=== PATIENT | female | born 1960 | race Caucasian/White ===

== ENCOUNTER → 2016-07-21 | Outpatient (CLI) | payer MEDICAID | LOC: EDBD 14:59 → RAD 14:59 | PROVIDERS: ATTEND Family Medicine | DX: M54.2 Cervicalgia (principal); M54.9 Dorsalgia, unspecified; M50.322 Other cervical disc degeneration at C5-C6 level; M51.36 Other intervertebral disc degeneration, lumbar region | CPT/HCPCS: 72050; 72110 ==

== ENCOUNTER → 2017-05-21 | Outpatient (CLI) | payer MEDICAID ==
--- NOTE | 2017-05-21 11:03 | RADIOLOGY REPORT (SQ) ---
EXAM DESCRIPTION: KNEE LEFT 4 VIEW COMPLETED DATE/TIME: 05/21/2017 10:47 am REASON FOR STUDY: BILATERAL KNEE PAIN (M25.561, M25.562) M25.561 PAIN IN RIGHT KNEE M25.562 PAIN I N LEFT KNEE COMPARISON: None. NUMBER OF VIEWS: Four views. TECHNIQUE: AP, lateral, and both oblique radiographic images acquired of the left knee. LIMITATIONS: None. FINDINGS: MINERALIZATION: Normal. BONES: No acute fracture or dislocation. No worrisome bone lesions. Small medial osteophyte. JOINT: No effusion. No chondrocalcinosis. OTHER: No other significant finding. IMPRESSION: Mild medial compartment degenerative changes. TECHNICAL DOCUMENTATION: JOB ID: [id number] [employer]- All Rights Reserved
--- NOTE | 2017-05-21 11:04 | RADIOLOGY REPORT (SQ) ---
EXAM DESCRIPTION: KNEE RIGHT 4 VIEWS COMPLETED DATE/TIME: 05/21/2017 10:47 am REASON FOR STUDY: BILATERAL KNEE PAIN (M25.561, M25.562) M25.561 PAIN IN RIGHT KNEE M25.562 PAIN I N LEFT KNEE COMPARISON: None. NUMBER OF VIEWS: Four views. TECHNIQUE: AP, lateral, and both oblique radiographic images acquired of the right knee. LIMITATIONS: None. FINDINGS: MINERALIZATION: Normal. BONES: No acute fracture or dislocation. No worrisome bone lesions. Small 3 compartment osteophytes. JOINT: No effusion. No chondrocalcinosis. OTHER: No other significant finding. IMPRESSION: Mild 3 compartment osteoarthritis. TECHNICAL DOCUMENTATION: JOB ID: [id number] [employer]- All Rights Reserved
== END ==
LOC: RAD 10:16
PROVIDERS: ATTEND Family Medicine
DX: M25.561 Pain in right knee (principal); M25.562 Pain in left knee

== ENCOUNTER → 2017-10-15 | Outpatient (CLI) | payer MEDICAID ==
[2017-10-15 13:14] LABS: ABSOLUTE EOSINOPHILS # (AUTO) 0.1 10^3/uL (0.0-0.6); ABSOLUTE LYMPHOCYTES (AUTO) 2.3 10^3/uL (0.5-4.7); ABSOLUTE MONOCYTES (AUTO) 0.4 10^3/uL (0.1-1.4); ABSOLUTE NEUT (AUTO) 3.8 10^3/uL (1.7-8.2); BASOPHILS % (AUTO) 0.4 % (0-2); EOSINOPHILS % (AUTO) 1.2 % (0-6); HEMATOCRIT 42.1 % (36.0-47.0); HEMOGLOBIN 14.8 g/dL (12.0-15.5); LYMPHOCYTES % (AUTO) 34.8 % (13-45); MEAN CORPUSCULAR HEMOGLOBIN 32.1 pg (27.0-33.4); MEAN CORPUSCULAR HGB CONC 35.1 g/dL (32.0-36.0); MEAN CORPUSCULAR VOLUME 91 fl (80-97); MONOCYTES % (AUTO) 5.7 % (3-13); PLATELET COUNT 207 10^3/uL (150-450); RED BLOOD COUNT 4.61 10^6/uL (3.72-5.28); RED CELL DISTRIBUTION WIDTH 13.5 % (11.5-14.0); SEGMENTED NEUTROPHILS % (AUTO) 57.9 % (42-78); TOTAL CELLS COUNTED % (AUTO) 100 %; WHITE BLOOD COUNT 6.6 10^3/uL (4.0-10.5)
[2017-10-15 13:31] LABS: APPEARANCE,URINE SLIGHTLY-CLOUDY; BILIRUBIN,URINE NEGATIVE (NEGATIVE); COLOR,URINE YELLOW; GLUCOSE, URINE NEGATIVE (NEGATIVE); KETONES,URINE NEGATIVE (NEGATIVE); LEUKOCYTE ESTERASE,URINE LARGE (NEGATIVE); NITRITE,URINE NEGATIVE (NEGATIVE); PROTEIN,URINE NEGATIVE (NEGATIVE); URINE SPECIFIC GRAVITY 1.023; UROBILINOGEN,URINE NEGATIVE mg/dL (<2.0)
[2017-10-15 13:48] LABS: ANION GAP 12 (5-19); BLOOD UREA NITROGEN 13 mg/dL (7-20); CALCIUM 10.1 mg/dL (8.4-10.2); CARBON DIOXIDE 26 mmol/L (22-30); CHLORIDE 107 mmol/L (98-107); GLUCOSE 113 mg/dL (75-110); POTASSIUM 4.4 mmol/L (3.6-5.0); SODIUM 145.4 mmol/L (137-145)
--- NOTE | 2017-10-15 15:52 | RADIOLOGY REPORT (SQ) ---
EXAM DESCRIPTION: CHEST PA/LATERAL COMPLETED DATE/TIME: 10/15/2017 1:02 pm REASON FOR STUDY: PRE-OP COMPARISON: None. EXAM PARAMETERS: NUMBER OF VIEWS: two views TECHNIQUE: Digital Frontal and Lateral radiographic views of the chest acquired. RADIATION DOSE: NA LIMITATIONS: none FINDINGS: LUNGS AND PLEURA: No opacities, masses or pneumothorax. No pleural effusion. MEDIASTINUM AND HILAR STRUCTURES: No masses or contour abnormalities. HEART AND VASCULAR STRUCTURES: Heart normal size. No evidence for failure. BONES: No acute findings. HARDWARE: None in the chest. OTHER: No other significant finding. IMPRESSION: NO SIGNIFICANT RADIOGRAPHIC FINDING IN THE CHEST. TECHNICAL DOCUMENTATION: JOB ID: [id number] [employer]- All Rights Reserved Reading location - IP/workstation name: [email or web address]
--- NOTE | 2017-10-15 20:24 | EKG REPORT ---
SEVERITY:- BORDERLINE ECG - SINUS RHYTHM BORDERLINE T ABNORMALITIES, INFERIOR LEADS : Confirmed by: Joselyn Leon MD 15-Oct-2017 20:23:57
== END ==
LOC: OD 12:26
PROVIDERS: ATTEND Orthopaedic Surgery
DX: Z01.810 Encounter for preprocedural cardiovascular examination (principal); Z01.812 Encounter for preprocedural laboratory examination; Z01.818 Encounter for other preprocedural examination
CPT/HCPCS: 36415; 71046; 80048; 81001; 85025; 93005; 93010

== ENCOUNTER 2017-11-12 11:38 | Inpatient (IN) | payer MEDICAID ==
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
[~2017-11-12 11:38] MED LIST: BUPIVACAINE INJ/PF LIPOSOME/PF 266 MG/20 ML SDV ONE; CEFAZOLIN INJ 1 GM VIAL IV PRN; CLINDAMYCIN 600 MG/D5W RTU 600 MG/50 ML RTUPB IV PRN; IBUPROFEN 800 MG/NS 250 ML IV PRN; LACTATED RINGERS 1000 ML IV PRN; LANSOPRAZOLE 15 MG TAB.RAP.DR PO PRN; LIDOCAINE 0.5% INJ-PF (5 MG/ML) 50 ML SDV SUBCUT PRN; OXYCODONE HCL SR 10 MG TABLET PO PRN; VANCOMYCIN HCL 1,000 MG in DEXTROSE 5%-WATER 250 ML IV PRN
[2017-11-12] MEDS ORDERED: FENTANYL CITRATE INJ/PF 250 MCG/5 ML AMPULE ONE (12:48)
[2017-11-12] MEDS ORDERED: LIDOCAINE 2% INJ-PF (20 MG/ML) 10 ML AMPUL ONE (12:48)
[2017-11-12] MEDS ORDERED: PROPOFOL INJ 200 MG/20 ML VIAL IV ONE ×2 (12:49→15:38)
[2017-11-12] MEDS ORDERED: ACETAMINOPHEN 1,000 MG/100 ML RTUPB IV ONE (12:49)
[2017-11-12] MEDS ORDERED: MIDAZOLAM 2 MG/2 ML INJ ONE (12:49)
[2017-11-12] MEDS ORDERED: ONDANSETRON HCL INJ/PF 4 MG/2 ML SDV ONE (12:49)
[2017-11-12] MEDS ORDERED: FENTANYL CITRATE INJ/PF 100 MCG/2 ML AMPUL ONE (12:51)
[2017-11-12] MEDS ORDERED: BUPIVACAINE HCL/DEX-WATER/PF 15 MG/2 ML AMPULE ONE (12:54)
[2017-11-12] MEDS: BUPIVACAINE INJ/PF LIPOSOME/PF 266 MG/20 ML SDV IJ PRN ×2 (13:15→14:42)
[2017-11-12] MEDS: THROMBIN (BOVINE) TOPICAL 5000 UNIT VIAL ONE ×2 (13:17→14:42)
[2017-11-12] MEDS: THROMBIN (BOVINE) TOPICAL 20000 UNIT VIAL ONE ×2 (13:17→14:42)
[2017-11-12] MEDS ORDERED: THROMBIN (BOVINE) TOPICAL 20000 UNIT VIAL ONE (14:52)
[2017-11-12] MEDS ORDERED: RINGERS SOLUTION,LACTATED 1,000 ML IV PRN (15:03)
[2017-11-12] MEDS ORDERED: DIPHENHYDRAMINE HCL 50 MG/ML VIAL IV PRN ×2 (15:03→15:34)
[2017-11-12] MEDS ORDERED: ACETAMINOPHEN 325 MG TABLET PO PRN (15:03)
[2017-11-12] MEDS ORDERED: MORPHINE SULFATE 10 MG/ML INJ IM PRN (15:03)
[2017-11-12] MEDS ORDERED: ONDANSETRON 4 MG TAB.RAPDIS PO PRN (15:03)
[2017-11-12] MEDS ORDERED: MAG HYDROX/AL HYDROX/SIMETH SUSP 30 ML UDCUP PO PRN (15:03)
[2017-11-12] MEDS ORDERED: ZOLPIDEM TARTRATE 5 MG TABLET PO PRN (15:03)
[2017-11-12] MEDS ORDERED: MORPHINE SULFATE 10 MG/ML INJ IV PRN ×4 (15:03→15:34)
[2017-11-12] MEDS ORDERED: ONDANSETRON HCL INJ/PF 4 MG/2 ML SDV IV PRN ×2 (15:03→15:34)
--- NOTE | 2017-11-12 15:03 | Operative Report ---
Operative Report DATE OF SURGERY: 11/12/17 PREOPERATIVE DIAGNOSIS: Right knee arthritis OPERATION: Right knee arthroplasty SURGEON: MARQUEZ IBANEZ ANESTHESIA: Spinal TISSUE REMOVED OR ALTERED: Bone to pathology ESTIMATED BLOOD LOSS: 100 PROCEDURE: Implants used: Femur: Chang triathlon size 4 CR femur Tibia: 3 tibia Tibial liner: 9 mm CS insert Patella: 32 mm oval patella Procedure with the patient supine on the operating table the right the limb is prepped and draped in a sterile fashion. The limb was elevated for exsanguination and the tourniquet inflated to 280 torr. A standard midline median parapatellar approach the knee is taken. Access is gained to the femoral canal through the intercondylar notch. Intramedullary alignment instrumentation used to resect 10 mm of distal femur in 5 of valgus. Sizing guide indicated a size 4 femur. Appropriate cutting jig is then used to fashion anterior posterior and chamfer cuts. A trial reduction femurs performed and this is judged to be adequate. Attention was next turned to the tibia. Using an extra medullary alignment system 9 millimeters was resected off the lateral tibial plateau. This is sized to a size 3 tibia. A trial reduction was now performed with a for femur and a 3 tibia using a 9 millimeters spacer. It is full extension and central patellofemoral tracking. The articular surface the patella was next resected using an oscillating saw. All trial implants were removed. Polymethylmethacrylate is mixed and used to cement the above implants in place. On adequate curing the cement excess cement was removed the tourniquet was deflated hemostasis obtained the wound is then closed in layers using interrupted Vicryl followed by dulce. A sterile compressive dressing was applied and the patient returned to recovery room in satisfactory condition.
[2017-11-12] MEDS ORDERED: PROMETHAZINE HCL INJ 25 MG/1 ML VIAL IV PRN ×2 (15:34)
[2017-11-12] MEDS ORDERED: FENTANYL CITRATE INJ/PF 100 MCG/2 ML AMPUL IV PRN ×3 (15:34)
[2017-11-12] MEDS ORDERED: MEPERIDINE HCL/PF INJ 25 MG/1 ML DISP.SYRIN IV PRN (15:34)
--- NOTE | 2017-11-12 15:56 | RADIOLOGY REPORT (SQ) ---
EXAM DESCRIPTION: KNEE RIGHT 2 VIEWS COMPLETED DATE/TIME: 11/12/2017 3:48 pm REASON FOR STUDY: Post OP -Long Cassette in PACU M17.11 UNILATERAL PRIMARY OSTEOARTHRITIS, RIGHT KN EE COMPARISON: None. NUMBER OF VIEWS: Four views. TECHNIQUE: AP, lateral, and both oblique radiographic images acquired of the right knee. LIMITATIONS: None. FINDINGS: Postoperative images show a total knee arthroplasty in good position. IMPRESSION: Total knee arthroplasty. Refer to operative note for further information. TECHNICAL DOCUMENTATION: JOB ID: [id number] [employer]- All Rights Reserved Reading location - IP/workstation name: [email or web address]
[2017-11-12] MEDS ORDERED: TRANEXAMIC ACID INJ/PF 1,000 MG/10 ML SDV IV ONE ×2 (16:10→17:00)
[2017-11-12] MEDS ORDERED: PREGABALIN 75 MG CAPSULE PO SCH (18:00)
[2017-11-12] MEDS: FUROSEMIDE 40 MG TABLET PO SCH (18:39)
[2017-11-12] MEDS: HYDROCHLOROTHIAZIDE 25 MG TABLET PO SCH (18:39)
[2017-11-12] MEDS: SENNOSIDES/DOCUSATE 8.6-50 MG 1 EACH TABLET PO SCH (18:56)
[2017-11-12] MEDS: OXYCODONE HCL IR 5 MG TABLET PO PRN (19:47)
[2017-11-12] MEDS: IBUPROFEN 800 MG in NORMAL SALINE 250 ML IV SCH (21:48)
[2017-11-12] MEDS: OXYCODONE HCL SR 10 MG TABLET PO SCH (21:50)
[2017-11-12] MEDS: GABAPENTIN 300 MG CAPSULE PO SCH (21:50)
[2017-11-13] MEDS ORDERED: VANCOMYCIN HCL 1,000 MG in DEXTROSE 5%-WATER 250 ML IV ONE (03:03)
[2017-11-13] MEDS: IBUPROFEN 800 MG in NORMAL SALINE 250 ML IV SCH (05:13)
[2017-11-13] MEDS: GABAPENTIN 300 MG CAPSULE PO SCH ×3 (05:13→21:06)
[2017-11-13] MEDS: OXYCODONE HCL IR 5 MG TABLET PO PRN ×2 (05:23→13:37)
[2017-11-13 06:30] LABS: HEMOGLOBIN 12.9 g/dL (12.0-15.5); MEAN CORPUSCULAR HEMOGLOBIN 31.6 pg (27.0-33.4); MEAN CORPUSCULAR VOLUME 93 fl (80-97); PLATELET COUNT 154 10^3/uL (150-450); RED BLOOD COUNT 4.09 10^6/uL (3.72-5.28); RED CELL DISTRIBUTION WIDTH 13.4 % (11.5-14.0); WHITE BLOOD COUNT 7.5 10^3/uL (4.0-10.5)
--- NOTE | 2017-11-13 06:43 | PDOC PROGRESS REPORT ---
Subjective Progress Note for:: 11/13/17 Reason For Visit: M17.11 UNILATERAL PRIMARY OSTEOARTHRITIS, RIGHT KN 57-year-old white female postop day 1 from right knee arthroplasty. Patient complaining of pain overnight. Was not seen by physical therapy and has not been out of bed. Physical Exam Vital Signs: Temp Pulse Resp BP Pulse Ox 37.3 C 60 17 105/64 100 11/12/17 21:15 11/12/17 21:15 11/12/17 21:15 11/12/17 21:15 11/12/17 21:15 Intake & Output 11/11/17 11/12/17 11/13/17 06:59 06:59 06:59 Intake Total 4538 Output Total 2075 Balance 2463 Weight 93.9 kg General appearance: PRESENT: no acute distress, mild distress Head exam: PRESENT: normocephalic Respiratory exam: PRESENT: unlabored Cardiovascular exam: PRESENT: RRR Pulses: PRESENT: +1 pedal pulses bilateral Extremities exam: PRESENT: other - Right knee dressing clean dry and intact. Distal neurovascular examination is intact. Neurological exam: PRESENT: alert, awake, oriented to person, oriented to place , oriented to time, oriented to situation. ABSENT: motor sensory deficit Psychiatric exam: PRESENT: appropriate affect, normal mood. ABSENT: homicidal ideation, suicidal ideation Skin exam: PRESENT: dry, intact, warm. ABSENT: cyanosis, rash Results Laboratory Results: 11/13/17 05:49 11/12/17 11/13/17 12:53 05:49 WBC 7.5 RBC 4.09 Hgb 12.9 Hct 38.0 MCV 93 MCH 31.6 MCHC 34.0 RDW 13.4 Plt Count 154 Potassium 4.6 Impressions: Knee X-Ray 11/12/17 15:05 IMPRESSION: Total knee arthroplasty. Refer to operative note for further information. Assessment & Plan - Diagnosis (1) Arthritis of right knee Is this a current diagnosis for this admission?: Yes Plan: Patient requesting consideration for assisted facility placement because of her home living situation. Order placed for social work to assist with arrangements. Physical therapy to proceed on a weightbearing as tolerated amatory basis. - Time Time Spent with patient: 15-24 minutes Anticipated discharge: SNF Within: within 48 hours
[2017-11-13 06:53] LABS: ANION GAP 8 (5-19); BLOOD UREA NITROGEN 12 mg/dL (7-20); CALCIUM 9.2 mg/dL (8.4-10.2); CARBON DIOXIDE 26 mmol/L (22-30); CHLORIDE 108 mmol/L (98-107); GLUCOSE 94 mg/dL (75-110); POTASSIUM 4.9 mmol/L (3.6-5.0); SODIUM 142.1 mmol/L (137-145)
[2017-11-13] MEDS: SENNOSIDES/DOCUSATE 8.6-50 MG 1 EACH TABLET PO SCH ×2 (08:59→17:43)
[2017-11-13] MEDS: LANSOPRAZOLE 30 MG TAB.RAP.DR PO SCH (09:00)
[2017-11-13] MEDS: OXYCODONE HCL SR 10 MG TABLET PO SCH ×2 (09:01→21:06)
[2017-11-13] MEDS: PRENATAL VITAMIN W DHA CAPSULE PO SCH (09:02)
[2017-11-13] MEDS: SIMVASTATIN 40 MG TABLET PO SCH (09:02)
[2017-11-13] MEDS: ASPIRIN 81 MG TABLET, ENT COATED PO SCH (09:02)
[2017-11-13] MEDS: FUROSEMIDE 40 MG TABLET PO SCH ×2 (09:03→17:43)
[2017-11-13] MEDS: HYDROCHLOROTHIAZIDE 25 MG TABLET PO SCH ×2 (09:04→17:43)
[2017-11-13] MEDS: IBUPROFEN 800 MG in DEXTROSE 5%-WATER 250 ML IV SCH ×2 (13:32→21:03)
--- NOTE | 2017-11-13 14:28 | Physician Advisory Note ---
Physician Advisor ProgressNote .: Pursuant to the plan for [facility], I have reviewed the medical record for this patient. Physician Advisor Statement: Please document specific clinical reasons pt needs a rehab stay post-op. Does she have clinical post-op care/support needs that family/support persons are not able to provide? Status: Pt has not yet progressed to goal in mobility yet after 1 MN in hospital, after not having full sensation yet post spinal anesthesia to try PT the day of surgery. Needing continued PT. Appropriate for Inpatient status. Thanks! CK
[2017-11-14] MEDS: OXYCODONE HCL IR 5 MG TABLET PO PRN ×2 (05:21→13:52)
[2017-11-14] MEDS: GABAPENTIN 300 MG CAPSULE PO SCH ×2 (05:22→13:52)
[2017-11-14] MEDS: IBUPROFEN 800 MG in DEXTROSE 5%-WATER 250 ML IV SCH ×3 (05:22→13:59)
[2017-11-14 05:40] LABS: HEMATOCRIT 37.9 % (36.0-47.0); HEMOGLOBIN 13.1 g/dL (12.0-15.5); MEAN CORPUSCULAR HEMOGLOBIN 31.4 pg (27.0-33.4); MEAN CORPUSCULAR HGB CONC 34.6 g/dL (32.0-36.0); MEAN CORPUSCULAR VOLUME 91 fl (80-97); PLATELET COUNT 159 10^3/uL (150-450); RED BLOOD COUNT 4.18 10^6/uL (3.72-5.28); RED CELL DISTRIBUTION WIDTH 13.2 % (11.5-14.0); WHITE BLOOD COUNT 9.2 10^3/uL (4.0-10.5)
--- NOTE | 2017-11-14 07:31 | PDOC DISCHARGE SUMMARY ---
General - Admit/Disc Date/PCP Admission Date/Primary Care Provider: 11/12/17 11:38 SINDI CONNELLY MD Discharge Date: 11/14/17 - Discharge Diagnosis (1) Arthritis of right knee Is this a current diagnosis for this admission?: Yes - Additional Information Resuscitation Status: Full Code Discharge Activity: Balance Activity w/Rest, No Driving, No tub bath Home Medications: Albuterol Sulfate [Ventolin Hfa] 2 puff IH ASDIR 10/17/17 Cetirizine HCl [Allergy Relief] 10 mg PO DAILY 10/17/17 Fluticasone/Salmeterol [Advair 250-50 Diskus 14 Dose/Diskus] 2 puff IH QAM 10/17 Furosemide [Lasix] 40 mg PO BID 10/17/17 Gabapentin 600 mg PO TID 10/17/17 Hydrochlorothiazide 25 mg PO BID 10/17/17 Naproxen 500 mg PO BID 10/17/17 Pantoprazole Sodium 40 mg PO BID 10/17/17 Simvastatin 40 mg PO DAILY 10/17/17 Tramadol HCl 50 mg PO TID 10/17/17 Cholecalciferol (Vitamin D3) [D3-2000] 2,000 units PO DAILY 11/01/17 Aspirin [Ecotrin 81 mg EC Tablet] 81 mg PO DAILY tabec 11/14/17 Oxycodone HCl [Oxy-Ir 5 mg Tablet] 5 mg PO Q6HP PRN tablet 11/14/17 History of Present Illness History of Present Illness: ROBERT MARTINEZ is a 57 year old female Patient is a 57-year-old white female with progressive right knee pain and functional disability secondary osteoarthritis. Patient is admitted for elective right knee arthroplasty. Hospital Course Hospital Course: Patient is admitted through the operating room where she undergoes uncomplicated right knee arthroplasty. She is returned to floor in satisfactory condition. Because of the time of the day and because of a prolonged spinal anesthetic patient has not received physical therapy on the day of surgery. She makes excellent progress on postop day 1. Dressings taken down on postop day 2. Wound is well approximated. Physical Exam Vital Signs: Temp Pulse Resp BP Pulse Ox 36.9 C 75 18 116/59 L 96 11/13/17 22:58 11/13/17 22:58 11/13/17 22:58 11/13/17 22:58 11/13/17 22:58 Intake & Output 11/13/17 11/14/17 11/15/17 06:59 06:59 06:59 Intake Total 4538 2899 Output Total 2075 0 Balance 2463 2899 Weight 93.9 kg 94.2 kg General appearance: PRESENT: no acute distress Head exam: PRESENT: normocephalic Respiratory exam: PRESENT: unlabored Cardiovascular exam: PRESENT: RRR Pulses: PRESENT: +1 pedal pulses bilateral GI/Abdominal exam: PRESENT: soft Rectal exam: PRESENT: deferred Extremities exam: PRESENT: other - Right knee dressing clean dry and intact. Minimal pedal edema. Distal neurovascular examination is intact. Neurological exam: PRESENT: alert, awake, oriented to person, oriented to place , oriented to time, oriented to situation. ABSENT: motor sensory deficit Psychiatric exam: PRESENT: appropriate affect, normal mood. ABSENT: homicidal ideation, suicidal ideation Skin exam: PRESENT: dry, intact, warm. ABSENT: cyanosis, rash Results Laboratory Results: 11/14/17 04:27 11/13/17 05:49 11/14/17 04:27 WBC 9.2 RBC 4.18 Hgb 13.1 Hct 37.9 MCV 91 MCH 31.4 MCHC 34.6 RDW 13.2 Plt Count 159 Impressions: Knee X-Ray 11/12/17 15:05 IMPRESSION: Total knee arthroplasty. Refer to operative note for further information. Status: Imported from PACS Qualifiers - * PATIENT BEING DISCHARGED WITH ANY OF THE FOLLOWING DIAGNOSIS: No VTE patient discharged on overlapping Therapy?: Yes Plan Discharge Plan: Patient be discharged home with home health services in the knee. Follow-up with Dr. Ray and [facility] for surgery in 2 weeks for staple removal. Time Spent: Less than 30 Minutes
[2017-11-14] MEDS: OXYCODONE HCL SR 10 MG TABLET PO SCH (09:19)
[2017-11-14] MEDS: FUROSEMIDE 40 MG TABLET PO SCH (09:20)
[2017-11-14] MEDS: SIMVASTATIN 40 MG TABLET PO SCH (09:20)
[2017-11-14] MEDS: ASPIRIN 81 MG TABLET, ENT COATED PO SCH (09:20)
[2017-11-14] MEDS: HYDROCHLOROTHIAZIDE 25 MG TABLET PO SCH (09:20)
[2017-11-14] MEDS: PRENATAL VITAMIN W DHA CAPSULE PO SCH (09:20)
[2017-11-14] MEDS: SENNOSIDES/DOCUSATE 8.6-50 MG 1 EACH TABLET PO SCH (09:20)
[2017-11-14] MEDS: LANSOPRAZOLE 30 MG TAB.RAP.DR PO SCH (09:20)
[2017-11-14 14:20] VITALS: BP 143/83
== END 2017-11-14 14:45 | disposition home health service (06) | DRG 470 ==
LOC: INOR 11:38 → 4S 17:49
PROVIDERS: ADMIT Orthopaedic Surgery; ATTEND Orthopaedic Surgery
PROC: 0SRC0J9 Replacement of Right Knee Joint with Synthetic Substitute, Cemented, Open Approach (ICD-10-PCS; principal; 2017-11-12 13:45)
DX: M17.11 Unilateral primary osteoarthritis, right knee (principal); Z79.899 Other long term (current) drug therapy; I10 Essential (primary) hypertension; J44.9 Chronic obstructive pulmonary disease, unspecified; G62.9 Polyneuropathy, unspecified; F17.210 Nicotine dependence, cigarettes, uncomplicated; E66.3 Overweight; Z68.35 Body mass index [BMI] 35.0-35.9, adult
CPT/HCPCS: 01402; 36415; 80048; 84132; 85027; 88305; 88311; 94799; C1713; C1776; C9290; J0131; J1741; J2250; J2270; J2405; J2704; J3010; J3370; J3490; J7050; J7060

== ENCOUNTER 2017-11-17 09:40 | Inpatient (IN) | payer MEDICAID ==
--- NOTE | 2017-11-17 10:10 | ER Document Report ---
ED Medical Screen (RME) - General Chief Complaint: Nausea/Vomiting Stated Complaint: DIZZINESS Time Seen by Provider: 11/17/17 10:07 Mode of Arrival: Wheelchair Information source: Patient, Relative TRAVEL OUTSIDE OF THE [place] IN LAST 30 DAYS: No - HPI Patient complains to provider of: dizziness, R knee pain Onset: Yesterday - pt with recent Total knee replacement per Dr. Ibanez with c/ o redness and warmth around incision site starting yesterday. Now with hot and cold sweats and dizziness - Related Data Allergies/Adverse Reactions: amoxicillin Allergy (Verified 11/17/17 09:41) celecoxib [From Celebrex] Allergy (Verified 11/17/17 09:41) duloxetine [From Cymbalta] Allergy (Verified 11/17/17 09:41) Penicillins Allergy (Verified 11/17/17 09:41) pregabalin [From Lyrica] Allergy (Verified 11/17/17 09:41) sertaconazole [From Ertaczo] Allergy (Verified 11/17/17 09:41) burtans Allergy (Uncoded 11/17/17 09:41) Past Medical History - Past Medical History Cardiac Medical History: Reports: Hx Hypercholesterolemia, Hx Hypertension Denies: Hx Atrial Fibrillation, Hx Congestive Heart Failure, Hx Coronary Artery Disease, Hx Heart Attack, Hx Peripheral Vascular Disease, Hx Pulmonary Embolism, Hx Heart Murmur Pulmonary Medical History: Reports: Hx Asthma, Hx COPD, Hx Sleep Apnea - doesn' t use Denies: Hx Bronchitis, Hx Pneumonia, Hx Respiratory Failure, Hx Tuberculosis Endocrine Medical History: Denies: Hx Graves' Disease, Hx Hyperthyroidism, Hx Hypothyroidism Renal/ Medical History: Denies: Hx Kidney Stones Malignancy Medical History: Denies: Hx Lung Cancer GI Medical History: Reports: Hx Gastroesophageal Reflux Disease. Denies: Hx Crohn's Disease, Hx Hiatal Hernia, Hx Irritable Bowel, Hx Liver Failure, Hx Pancreatitis, Hx Ulcer Musculoskeltal Medical History: Reports Hx Arthritis - knees, Denies Hx Fibromyalgia, Denies Hx Muscular Dystrophy Traumatic Medical History: Reports: Hx Fractures - ribs Past Surgical History: Reports: Hx Tubal Ligation. Denies: Hx Appendectomy, Hx Bowel Surgery, Hx Section, Hx Cholecystectomy, Hx Colostomy, Hx Coronary Artery Bypass Graft, Hx Gastric Bypass Surgery, Hx Herniorrhaphy, Hx Hysterectomy, Hx Mastectomy, Hx Pacemaker, Hx Tonsillectomy - Immunizations History of Influenza Vaccine for 01/2017 - 06/2017 Season: Yes Influenza Administration Date for 01/2017 - 06/2017 Season: 12/08/16 Physical Exam - Vital signs Vitals: Temp Pulse Resp BP Pulse Ox 98.9 F 74 18 120/63 98 11/17/17 09:54 11/17/17 09:54 11/17/17 09:54 11/17/17 09:54 11/17/17 09:54 Course - Vital Signs Vital signs: Temp Pulse Resp BP Pulse Ox 98.9 F 74 18 120/63 98 11/17/17 09:54 11/17/17 09:54 11/17/17 09:54 11/17/17 09:54 11/17/17 09:54 Doctor's Discharge - Discharge Referrals: MARQUEZ IBANEZ MD [Primary Care Provider] - Follow up as needed
[2017-11-17] MEDS ORDERED: ONDANSETRON HCL INJ/PF 4 MG/2 ML SDV IV ONE (10:39)
[2017-11-17] MEDS ORDERED: FENTANYL CITRATE INJ/PF 100 MCG/2 ML AMPUL IV ONE (10:39)
[2017-11-17 10:49] LABS: ABSOLUTE BASOPHILS # (AUTO) 0.1 10^3/uL (0.0-0.2); ABSOLUTE EOSINOPHILS # (AUTO) 0.1 10^3/uL (0.0-0.6); ABSOLUTE LYMPHOCYTES (AUTO) 1.5 10^3/uL (0.5-4.7); ABSOLUTE MONOCYTES (AUTO) 0.7 10^3/uL (0.1-1.4); ABSOLUTE NEUT (AUTO) 6.7 10^3/uL (1.7-8.2); BASOPHILS % (AUTO) 0.7 % (0-2); EOSINOPHILS % (AUTO) 0.6 % (0-6); HEMATOCRIT 37.8 % (36.0-47.0); HEMOGLOBIN 13.2 g/dL (12.0-15.5); LYMPHOCYTES % (AUTO) 16.7 % (13-45); MEAN CORPUSCULAR HEMOGLOBIN 31.4 pg (27.0-33.4); MEAN CORPUSCULAR VOLUME 90 fl (80-97); MONOCYTES % (AUTO) 7.7 % (3-13); PLATELET COUNT 304 10^3/uL (150-450); RED BLOOD COUNT 4.22 10^6/uL (3.72-5.28); SEGMENTED NEUTROPHILS % (AUTO) 74.3 % (42-78); TOTAL CELLS COUNTED % (AUTO) 100 %
--- NOTE | 2017-11-17 11:19 | RADIOLOGY REPORT (SQ) ---
EXAM DESCRIPTION: CHEST 2 VIEWS COMPLETED DATE/TIME: 11/17/2017 11:00 am REASON FOR STUDY: weakness COMPARISON: None. EXAM PARAMETERS: NUMBER OF VIEWS: two views TECHNIQUE: Digital Frontal and Lateral radiographic views of the chest acquired. RADIATION DOSE: NA LIMITATIONS: none FINDINGS: LUNGS AND PLEURA: No opacities, masses or pneumothorax. No pleural effusion. MEDIASTINUM AND HILAR STRUCTURES: No masses or contour abnormalities. HEART AND VASCULAR STRUCTURES: Heart normal size. No evidence for failure. BONES: No acute findings. HARDWARE: None in the chest. OTHER: No other significant finding. IMPRESSION: NO ACUTE RADIOGRAPHIC FINDING IN THE CHEST. TECHNICAL DOCUMENTATION: JOB ID: [id number] [employer]- All Rights Reserved Reading location - IP/workstation name: [email or web address]
--- NOTE | 2017-11-17 11:51 | RADIOLOGY REPORT (SQ) ---
EXAM DESCRIPTION: CTA CHEST COMPLETED DATE/TIME: 11/17/2017 11:18 am REASON FOR STUDY: sob pod 5 COMPARISON: None. TECHNIQUE: CT scan of the chest performed using helical scanning technique with dynamic intravenous contrast injection. Images reviewed with lung, soft tissue and bone windows. Reconstructed coronal and sagittal MPR images reviewed. Additional 3 dimensional post-processing performed to develop Maximal Intensity Projection images (ME P). All images stored on PACS. All CT scanners at this facility use dose modulation, iterative reconstruction, and/or weight based d osing when appropriate to reduce radiation dose to as low as reasonably achievable (ALARA). [facility]: Dose Right [facility]: CareDose [facility]: Dose Right [facility]: Teradose 4D [facility]: Suninfo Information CONTRAST TYPE AND DOSE: contrast/concentration: Isovue 350.00 mg/ml; Total Contrast Delivered: 78.0 ml; Total Saline Delivered: 110.0 ml Contrast bolus optimized for the pulmonary arteries. Not diagnostic for the aorta. RENAL FUNCTION: GFR > 60. RADIATION DOSE: CT Rad equipment meets quality standard of care and radiation dose reduction techniq ues were employed. CTDIvol: 17.8 - 19.8 mGy. DLP: 632 mGy-cm. . LIMITATIONS: None. FINDINGS: LUNGS AND PLEURA: Paraseptal emphysema upper lobes. No evidence of pulmonary edema or pne umonia. No nodules or effusions. AORTA AND GREAT VESSELS: No aneurysm. Contrast bolus not optimized for the aorta. HEART: No pericardial effusion. Mild coronary artery calcifications. PULMONARY ARTERIES: No emboli visualized in the main pulmonary arteries or the segmental branches. HILAR AND MEDIASTINAL STRUCTURES: No identified masses or abnormal nodes. HARDWARE: None in the chest. UPPER ABDOMEN: No significant findings. Limited exam. THYROID AND OTHER SOFT TISSUES: No masses. No adenopathy. BONES: No acute or significant finding. 3D MIPS: Confirm above findings. OTHER: No other significant finding. IMPRESSION: No evidence of pulmonary embolus. COMMENT: Quality ID # [id number]: Final reports with documentation of one or more dose reduction techniques (e.g., Automated exposure control, adjustment of the mA and/or kV according to patient size, use of iterative reconstruction technique) TECHNICAL DOCUMENTATION: JOB ID: [id number] [employer]- All Rights Reserved Reading location - IP/workstation name: [email or web address]
[2017-11-17] MEDS ORDERED: CLINDAMYCIN 900 MG/D5W RTU 900 MG/50 ML RTUPB IV ONE (12:14)
--- NOTE | 2017-11-17 12:16 | ER Document Report ---
ED General - General Chief Complaint: Nausea/Vomiting Stated Complaint: DIZZINESS Time Seen by Provider: 11/17/17 10:07 Mode of Arrival: Wheelchair Information source: Patient, Relative, [facility] Records Notes: 57-year-old female with hypertension, hyperlipidemia, COPD presents postop day 5 from a right total knee replacement with Dr. Ray with complaints of increasing pain, redness, nausea, chills, sweats and shortness of breath. Patient was discharged 3 days ago from [facility]. She states that abruptly overnight she experienced increased pain and redness. Patient is complaining of shortness of breath. She has been taking aspirin as she was instructed to. She denies any previous history of DVT or PE. TRAVEL OUTSIDE OF THE [place] IN LAST 30 DAYS: No - HPI Onset: Yesterday Onset/Duration: Sudden, Persistent, Worse Quality of pain: Achy, Throbbing Severity: Moderate Associated symptoms: Body/muscle aches, Leg swelling, Nausea, Shortness of breath, Sweating Exacerbated by: Movement, Walking Relieved by: Remaining still Similar symptoms previously: No Recently seen / treated by doctor: Yes - 11/17/17 - Related Data Allergies/Adverse Reactions: amoxicillin Allergy (Verified 11/17/17 10:13) celecoxib [From Celebrex] Allergy (Verified 11/17/17 10:13) duloxetine [From Cymbalta] Allergy (Verified 11/17/17 10:13) Penicillins Allergy (Verified 11/17/17 10:13) pregabalin [From Lyrica] Allergy (Verified 11/17/17 10:13) sertaconazole [From Ertaczo] Allergy (Verified 11/17/17 10:13) burtans Allergy (Uncoded 11/17/17 10:13) Past Medical History - General Information source: Patient, Relative - Social History Smoking Status: Current Every Day Smoker Cigarette use (# per day): Yes - 10 Chew tobacco use (# tins/day): No Smoking Education Provided: Yes - 4 minutes of smoking cessation provided Frequency of alcohol use: None Drug Abuse: None Lives with: Family Family History: Reviewed & Not Pertinent Patient has suicidal ideation: No Patient has homicidal ideation: No - Past Medical History Cardiac Medical History: Reports: Hx Hypercholesterolemia, Hx Hypertension Denies: Hx Atrial Fibrillation, Hx Congestive Heart Failure, Hx Coronary Artery Disease, Hx Heart Attack, Hx Peripheral Vascular Disease, Hx Pulmonary Embolism, Hx Heart Murmur Pulmonary Medical History: Reports: Hx Asthma, Hx COPD, Hx Sleep Apnea - doesn' t use Denies: Hx Bronchitis, Hx Pneumonia, Hx Respiratory Failure, Hx Tuberculosis Endocrine Medical History: Denies: Hx Graves' Disease, Hx Hyperthyroidism, Hx Hypothyroidism Renal/ Medical History: Denies: Hx Kidney Stones, Hx Peritoneal Dialysis Malignancy Medical History: Denies: Hx Lung Cancer GI Medical History: Reports: Hx Gastroesophageal Reflux Disease. Denies: Hx Crohn's Disease, Hx Hiatal Hernia, Hx Irritable Bowel, Hx Liver Failure, Hx Pancreatitis, Hx Ulcer Musculoskeletal Medical History: Reports Hx Arthritis - knees, Denies Hx Fibromyalgia, Denies Hx Muscular Dystrophy Traumatic Medical History: Reports: Hx Fractures - ribs Past Surgical History: Reports: Hx Cardiac Catheterization, Hx Orthopedic Surgery - right knee replacement, Hx Tubal Ligation. Denies: Hx Appendectomy, Hx Bowel Surgery, Hx Section, Hx Cholecystectomy, Hx Colostomy, Hx Coronary Artery Bypass Graft, Hx Gastric Bypass Surgery, Hx Herniorrhaphy, Hx Hysterectomy, Hx Mastectomy, Hx Pacemaker, Hx Tonsillectomy Review of Systems - Review of Systems Notes: REVIEW OF SYSTEMS: CONSTITUTIONAL : Denies fever. Denies recent illness. Denies weight loss, recent hospitalizations. EENT: Denies visual changes, eye pain. Denies nasal or sinus congestion or discharge. Denies sore throat, oral lesions, difficulty swallowing. CARDIOVASCULAR: Denies chest pain. Denies palpitations. RESPIRATORY: Denies cough, cold, or chest congestion. Denies wheezing. GASTROINTESTINAL: Denies abdominal pain or distention. Denies vomiting, or diarrhea. Denies blood in vomitus, stools, or per rectum. Denies black, tarry stools. Denies constipation. GENITOURINARY: Denies difficulty urinating, painful urination, frequency, blood in urine, or vaginal discharge. MUSCULOSKELETAL: Denies back or neck pain or stiffness. Denies joint pain or swelling. SKIN: Denies rash, lesions or sores. HEMATOLOGIC : Denies easy bruising or bleeding. LYMPHATIC: Denies swollen glands. NEUROLOGICAL: Denies confusion or altered mental status. Denies passing out or loss of consciousness. Denies dizziness or lightheadedness. Denies headache. Denies weakness or paralysis. Denies problems difficulty with ambulation, slurred speech. Denies sensory loss, numbness, or tingling. Denies seizures. PSYCHIATRIC: Denies anxiety or stress. Denies depression, suicidal ideation, or homicidal ideation. Denies visual or auditory hallucinations. Physical Exam - Vital signs Vitals: Temp Pulse Resp BP Pulse Ox 98.9 F 74 18 120/63 98 11/17/17 09:54 11/17/17 09:54 11/17/17 09:54 11/17/17 09:54 11/17/17 09:54 Interpretation: No: Tachycardic, Febrile - Notes Notes: PHYSICAL EXAMINATION: GENERAL: Well-appearing, well-nourished and in no acute distress. HEAD: Atraumatic, normocephalic. EYES: Pupils equal round and reactive to light, extraocular movements intact, conjunctiva are normal. ENT: Nares patent, oropharynx clear without exudates. Moist mucous membranes. NECK: Normal range of motion, supple without lymphadenopathy LUNGS: Breath sounds clear to auscultation bilaterally and equal. No wheezes rales or rhonchi. HEART: Regular rate and rhythm without murmurs ABDOMEN: Soft, nontender, nondistended abdomen. No guarding, no rebound. No masses appreciated. Female : deferred Musculoskeletal: Right knee-8 inch vertical surgical incision clean dry and intact. Tracy in place. No purulent drainage. There is associated erythema. No warmth. Soft tissue swelling. DP pulse intact. Calf tender to palpation. NEUROLOGICAL: Cranial nerves grossly intact. Normal speech, normal gait. Normal sensory, motor exams PSYCH: Normal mood, normal affect. SKIN: Warm, Dry, normal turgor, no rashes or lesions noted. Course - Re-evaluation Re-evalutation: Laboratory 11/17/17 11/17/17 11/17/17 10:30 10:30 10:30 WBC 9.0 RBC 4.22 Hgb 13.2 Hct 37.8 MCV 90 MCH 31.4 MCHC 35.0 RDW 13.0 Plt Count 304 Seg Neutrophils % 74.3 Lymphocytes % 16.7 Monocytes % 7.7 Eosinophils % 0.6 Basophils % 0.7 Absolute Neutrophils 6.7 Absolute Lymphocytes 1.5 Absolute Monocytes 0.7 Absolute Eosinophils 0.1 Absolute Basophils 0.1 Sodium Cancelled Potassium Cancelled Chloride Cancelled Carbon Dioxide Cancelled Anion Gap Cancelled BUN Cancelled Creatinine Cancelled Est GFR ( Amer) Cancelled Est GFR (Non-Af Amer) Cancelled Glucose Cancelled Lactic Acid 2.0 Calcium Cancelled Total Bilirubin Cancelled Direct Bilirubin Cancelled Neonat Total Bilirubin Cancelled Neonat Direct Bilirubin Cancelled Neonat Indirect Bili Cancelled AST Cancelled ALT Cancelled Alkaline Phosphatase Cancelled Total Protein Cancelled Albumin Cancelled Urine Color Urine Appearance Urine pH Ur Specific [place] Urine Protein Urine Glucose (UA) Urine Ketones Urine Blood Urine Nitrite Urine Bilirubin Urine Urobilinogen Ur Leukocyte Esterase Urine WBC (Auto) Urine RBC (Auto) U Hyaline Cast (Auto) Squamous Epi Cells Auto Urine Ascorbic Acid 11/17/17 11/17/17 12:05 13:38 WBC RBC Hgb Hct MCV MCH MCHC RDW Plt Count Seg Neutrophils % Lymphocytes % Monocytes % Eosinophils % Basophils % Absolute Neutrophils Absolute Lymphocytes Absolute Monocytes Absolute Eosinophils Absolute Basophils Sodium 136.2 L Potassium 2.4 L* Chloride 87 L Carbon Dioxide 37 H Anion Gap 12 BUN 16 Creatinine 0.67 Est GFR ( Amer) > 60 Est GFR (Non-Af Amer) > 60 Glucose 99 Lactic Acid Calcium 9.5 Total Bilirubin 0.9 Direct Bilirubin 0.4 Neonat Total Bilirubin Not Reportable Neonat Direct Bilirubin Not Reportable Neonat Indirect Bili Not Reportable AST 37 H ALT 25 Alkaline Phosphatase 123 Total Protein 6.9 Albumin 3.7 Urine Color YELLOW Urine Appearance CLEAR Urine pH 8.0 Ur Specific [place] 1.046 Urine Protein NEGATIVE Urine Glucose (UA) NEGATIVE Urine Ketones NEGATIVE Urine Blood NEGATIVE Urine Nitrite NEGATIVE Urine Bilirubin NEGATIVE Urine Urobilinogen NEGATIVE Ur Leukocyte Esterase MODERATE H Urine WBC (Auto) 6 Urine RBC (Auto) 5 U Hyaline Cast (Auto) 1 Squamous Epi Cells Auto 4 Urine Ascorbic Acid NEGATIVE Chest X-Ray 11/17/17 10:07 IMPRESSION: NO ACUTE RADIOGRAPHIC FINDING IN THE CHEST. Chest/Abdomen CTA 11/17/17 10:42 IMPRESSION: No evidence of pulmonary embolus. 57-year-old female with hypertension, hyperlipidemia, COPD presents postop day 5 from a right total knee replacement with Dr. Ray with complaints of increasing pain, redness, nausea, chills, sweats and shortness of breath. Patient was discharged 3 days ago from [facility]. She states that abruptly overnight she experienced increased pain and redness. Patient is complaining of shortness of breath. She has been taking aspirin as she was instructed to. She denies any previous history of DVT or PE. Patient was seen by myself upon arrival. Vital signs were reviewed. Patient is afebrile, normotensive and not hypoxic. Patient does not appear toxic or dehydrated. They are in no acute distress. Previous medical records and nursing notes reviewed. Significant findings include an erythematous swollen right knee that is not warm to the touch and is without purulent drainage. Duplex of the right lower extremity was obtained and preliminary reading is negative for DVT. 11/17/17 14:[address] Smallwood regarding the patient's admission. He agrees to see the patient during her hospital course. No further orthopedic recommendations at this time. Patient will be admitted by the hospitalist for a potassium of 2.4. Potassium replenishment has been initiated. CBC without leukocytosis or anemia. CMP significant for a potassium of 2.4. Urinalysis shows moderate leuk esterase and 6 WBCs but patient denies any dysuria, urinary frequency. Urine culture pending 11/17/17 15:17 11/17/17 15:17 11/17/17 15:18 - Vital Signs Vital signs: Temp Pulse Resp BP Pulse Ox 98.9 F 74 18 103/75 100 11/17/17 09:54 11/17/17 09:54 11/17/17 14:01 11/17/17 14:01 11/17/17 14:01 - Laboratory Result Diagrams: 11/17/17 10:30 11/17/17 12:05 Laboratory results interpreted by me: 11/17/17 11/17/17 12:05 13:38 Sodium 136.2 L Potassium 2.4 L* Chloride 87 L Carbon Dioxide 37 H AST 37 H Ur Leukocyte Esterase MODERATE H - Diagnostic Test Radiology reviewed: Image reviewed, Reports reviewed - EKG Interpretation by Nv EKG shows normal: Sinus rhythm Rate: Normal Rhythm: NSR When compared to previous EKG there are: No significant change Discharge - Discharge Clinical Impression: Hypokalemia, Postoperative pain of right knee, Nausea Condition: Good Disposition: ADMITTED INPATIENT Admitting Provider: Hospitalist Unit Admitted: Medical Floor
[2017-11-17 13:30] LABS: ALANINE AMINOTRANSFERASE 25 U/L (9-52); ALBUMIN 3.7 g/dL (3.5-5.0); ALKALINE PHOSPHATASE 123 U/L (38-126); ANION GAP 12 (5-19); ASPARTATE AMINO TRANSFERASE 37 U/L (14-36); BILIRUBIN,DIRECT 0.4 mg/dL (0.0-0.4); BILIRUBIN,TOTAL 0.9 mg/dL (0.2-1.3); BLOOD UREA NITROGEN 16 mg/dL (7-20); CALCIUM 9.5 mg/dL (8.4-10.2); CARBON DIOXIDE 37 mmol/L (22-30); CHLORIDE 87 mmol/L (98-107); GLUCOSE 99 mg/dL (75-110); SODIUM 136.2 mmol/L (137-145); TOTAL PROTEIN 6.9 g/dL (6.3-8.2)
[2017-11-17 13:36] LABS: POTASSIUM 2.4 mmol/L (3.6-5.0)
[2017-11-17] MEDS ORDERED: POTASSIUM CHLORIDE 10 MEQ CAPSULE.ER PO ONE (13:39)
[2017-11-17] MEDS ORDERED: ONDANSETRON 4 MG TAB.RAPDIS PO ONE (13:39)
[2017-11-17] MEDS: POTASSI CL 20 MEQ/50 ML RIDER 20 MEQ/50 ML RTUPB IV SCH ×2 (14:06→16:38)
[2017-11-17 14:10] LABS: APPEARANCE,URINE CLEAR; BILIRUBIN,URINE NEGATIVE (NEGATIVE); COLOR,URINE YELLOW; GLUCOSE, URINE NEGATIVE (NEGATIVE); KETONES,URINE NEGATIVE (NEGATIVE); LEUKOCYTE ESTERASE,URINE MODERATE (NEGATIVE); NITRITE,URINE NEGATIVE (NEGATIVE); PROTEIN,URINE NEGATIVE (NEGATIVE); URINE SPECIFIC GRAVITY 1.046; UROBILINOGEN,URINE NEGATIVE mg/dL (<2.0)
[2017-11-17] MEDS ORDERED: IPRATROPIUM/ALBUTEROL 0.5-2.5 MG/3 ML AMPUL NEB PRN (15:01)
[2017-11-17] MEDS ORDERED: GLUCAGON,HUMAN RECOMB 1 MG INJ SUBCUT PRN (15:01)
[2017-11-17] MEDS ORDERED: DEXTROSE 50%-WATER 25 GM/50 ML DISP.SYRIN IV PRN ×2 (15:01)
[2017-11-17] MEDS ORDERED: ACETAMINOPHEN 650 MG SUPP.RECT PR PRN (15:01)
[2017-11-17] MEDS ORDERED: ONDANSETRON HCL INJ/PF 4 MG/2 ML SDV IV PRN (15:01)
[2017-11-17] MEDS ORDERED: DEXTROSE 40% GEL 15 GM TUBE PO PRN ×2 (15:01)
--- NOTE | 2017-11-17 18:57 | PDOC H&P ---
History of Present Illness Admission Date/PCP: 11/17/17 14:29 Patient complains of: Right knee swelling and pain. She states that she is unable to bear weight on the leg. She also complains of nausea, vomiting and left lower quadrant abdominal pain. History of Present Illness: ROBERT MARTINEZ is a 57 year old female who underwent Rt TKR on 08/12/2017. She states that her right leg is painful and swollen. She states that she is unable to bear weight or walk on it. She states that she tried to contact her orthopedic surgery, but was told that he was not available. The patient states that for the past 2-3 days she has also had nausea, vomiting, diarrhea, and pain in her left lower quadrant. She states that today she has been dizzy and very weak. She has also had fevers. Past Medical History Cardiac Medical History: Reports: Hyperlipidema, Hypertension Denies: Atrial Fibrillation, Congestive Heart Failure, Coronary Artery Disease, Myocardial Infarction, Peripheral Vascular Disease, Pulmonary Embolism , Heart Murmur Pulmonary Medical History: Reports: Asthma, Chronic Obstructive Pulmonary Disease (COPD), Sleep Apnea - doesn't use Denies: Bronchitis, Pneumonia, Respiratory Failure, Tuberculosis Endocrine Medical History: Denies: Hyperthyroidism, Hypothyroidism Malignancy Medical History: Denies: Lung Cancer GI Medical History: Reports: Gastroesophageal Reflux Disease Denies: Crohn's Disease, Hiatal Hernia Musculoskeltal Medical History: Reports: Arthritis - knees Denies: Fibromyalgia Hematology: Denies: Anemia Past Surgical History Past Surgical History: Reports: Cardiac Catheterization, Orthopedic Surgery - right knee replacement, Tubal Ligation Denies: Amputation, Appendectomy, Section, Cholecystectomy, Colostomy, Coronary Artery Bypass Graft, Gastric Bypass Surgery, Herniorrhaphy, Hysterectomy, Mastectomy, Pacemaker, Tonsillectomy Social History Lives with: Family Smoking Status: Current Every Day Smoker Hx Recreational Drug Use: No Hx Prescription Drug Abuse: No - Advance Directive Resuscitation Status: Full Code Family History Family History: Reviewed & Not Pertinent Parental Family History Reviewed: Yes Children Family History Reviewed: Yes Sibling(s) Family History Reviewed.: Yes Medication/Allergy Home Medications: Cetirizine HCl [Allergy Relief] 10 mg PO DAILY 10/17/17 Hydrochlorothiazide 25 mg PO BID 10/17/17 Naproxen 500 mg PO BID 10/17/17 Pantoprazole Sodium 40 mg PO BID 10/17/17 Simvastatin 40 mg PO DAILY 10/17/17 Tramadol HCl 50 mg PO Q8HP PRN 10/17/17 Cholecalciferol (Vitamin D3) [D3-2000] 4,000 units PO DAILY 11/01/17 Aspirin [Ecotrin 81 mg EC Tablet] 81 mg PO DAILY tabec 11/14/17 Gabapentin [Neurontin 300 mg Capsule] 300 mg PO Q8 11/17/17 Allergies/Adverse Reactions: amoxicillin Allergy (Verified 11/17/17 10:13) celecoxib [From Celebrex] Allergy (Verified 11/17/17 10:13) duloxetine [From Cymbalta] Allergy (Verified 11/17/17 10:13) Penicillins Allergy (Verified 11/17/17 10:13) pregabalin [From Lyrica] Allergy (Verified 11/17/17 10:13) sertaconazole [From Ertaczo] Allergy (Verified 11/17/17 10:13) burtans Allergy (Uncoded 11/17/17 10:13) Review of Systems Constitutional: PRESENT: chills, fever(s), weakness Eyes: ABSENT: visual disturbances Ears: ABSENT: hearing changes Nose, Mouth, and Throat: ABSENT: mouth pain, sore throat, vertigo Cardiovascular: ABSENT: dyspnea on exertion, orthropnea, palpitations Respiratory: ABSENT: cough, dyspnea, sputum Gastrointestinal: PRESENT: abdominal pain - Left lower quadrant., diarrhea, nausea, vomiting Musculoskeletal: PRESENT: other - Right knee and lower extremity pain, swelling , warmth, and tenderness. The patient is unable to bear weight or walk on the leg. Integumentary: PRESENT: other - right knee and lower extremity is warm and swollen. Neurological: PRESENT: dizziness, weakness. ABSENT: confusion, focal weakness, syncope Psychiatric: ABSENT: anxiety, depression Endocrine: ABSENT: polydipsia, polyphagia, polyuria Hematologic/Lymphatic: ABSENT: easy bleeding, easy bruising Physical Exam Vital Signs: Temp Pulse Resp BP Pulse Ox 98.7 F 65 15 116/66 97 11/17/17 17:30 11/17/17 17:30 11/17/17 17:30 11/17/17 17:30 11/17/17 17:30 Intake & Output 11/16/17 11/17/17 11/18/17 06:59 06:59 06:59 Intake Total 50 Balance 50 Weight 91.7 kg General appearance: PRESENT: mild distress, other - The patient is awake, alert , and oriented x 3. Eye exam: PRESENT: EOMI, PERRLA, other - No scleral injection.. ABSENT: scleral icterus Ear exam: PRESENT: normal external ear exam. ABSENT: bleeding, drainage Mouth exam: PRESENT: moist, neck supple, tongue midline. ABSENT: dry mucosa Throat exam: ABSENT: tonsillar erythema, tonsillar exudate, tonsillogmegaly Neck exam: ABSENT: JVD, lymphadenopathy, meningismus, tenderness, thyromegaly Respiratory exam: PRESENT: other - No increased work of breathing. No wheezes, rales, or rhonchi. Cardiovascular exam: PRESENT: RRR. ABSENT: gallop, rubs, systolic murmur Pulses: PRESENT: normal dorsalis pedis pul GI/Abdominal exam: PRESENT: normal bowel sounds, soft, tenderness - Positive for left lower quadrant painful to palpation.. ABSENT: hernia, mass Extremities exam: PRESENT: joint swelling - Right knee, tenderness - Right knee and lower extremity., +2 edema Musculoskeletal exam: PRESENT: tenderness. ABSENT: dislocation Neurological exam: PRESENT: alert, awake, oriented to person, oriented to place , oriented to time, oriented to situation, CN II-XII grossly intact. ABSENT: motor sensory deficit Psychiatric exam: PRESENT: appropriate affect, normal mood Skin exam: PRESENT: dry, erythema - Right knee and right lower extremity., intact, warm Results Laboratory Results: 11/17/17 11/17/17 11/17/17 10:30 10:30 12:05 WBC 9.0 RBC 4.22 Hgb 13.2 Hct 37.8 RDW 13.0 Plt Count 304 Sodium 136.2 L Potassium 2.4 L* Chloride 87 L Carbon Dioxide 37 H Anion Gap 12 BUN 16 Creatinine 0.67 Est GFR ( Amer) > 60 Est GFR (Non-Af Amer) > 60 Glucose 99 Lactic Acid 2.0 Calcium 9.5 Total Bilirubin 0.9 Direct Bilirubin 0.4 AST 37 H ALT 25 Alkaline Phosphatase 123 Total Protein 6.9 Albumin 3.7 Lipase 11/17/17 12:05 WBC RBC Hgb Hct RDW Plt Count Sodium Potassium Chloride Carbon Dioxide Anion Gap BUN Creatinine Est GFR ( Amer) Est GFR (Non-Af Amer) Glucose Lactic Acid Calcium Total Bilirubin Direct Bilirubin AST ALT Alkaline Phosphatase Total Protein Albumin Lipase 595.1 H Impressions: Chest X-Ray 11/17/17 10:07 IMPRESSION: NO ACUTE RADIOGRAPHIC FINDING IN THE CHEST. Chest/Abdomen CTA 11/17/17 10:42 IMPRESSION: No evidence of pulmonary embolus. Assessment & Plan - Diagnosis (1) Diverticulitis Is this a current diagnosis for this admission?: Yes Plan: IV antibiotics. CTa bdomen and pelvis tomorrow. Unable to do it today due to previous dye load for CTA chest. Blood cultures x 2. (2) Elevated lipase Plan: Monitor. The patient's pain is not typical of pancreatitis. Await CT abdomen tomorrow. (3) Hypokalemia Is this a current diagnosis for this admission?: Yes Plan: Supplement and follow. (4) Nausea Plan: Antiemetics. (5) Postoperative pain of right knee Is this a current diagnosis for this admission?: Yes Plan: Orthopedic surgery consulted. Will check for DVT with doppler. (6) Arthritis of right knee Is this a current diagnosis for this admission?: Yes Plan: S/P Right TKR on 11/12/2017. - Time Time Spent: 50 to 70 Minutes Medications reviewed and adjusted accordingly: Yes
[2017-11-17] MEDS: RINGERS SOLUTION,LACTATED 1,000 ML IV PRN (18:58)
[2017-11-17] MEDS ORDERED: ENOXAPARIN SODIUM INJ 100 MG/1 ML DISP.SYRIN SUBCUT ONE (19:30)
[2017-11-17] MEDS: KETOROLAC TROMETHAMINE INJ/PF 30 MG/1 ML SDV IV PRN (20:43)
--- NOTE | 2017-11-17 21:11 | EKG REPORT ---
SEVERITY:- ABNORMAL ECG - SINUS RHYTHM NONSPECIFIC T ABNORMALITIES, DIFFUSE LEADS : Confirmed by: Joselyn Leon MD 17-Nov-2017 21:10:05
[2017-11-18 04:46] LABS: ABSOLUTE EOSINOPHILS # (AUTO) 0.1 10^3/uL (0.0-0.6); ABSOLUTE LYMPHOCYTES (AUTO) 2.6 10^3/uL (0.5-4.7); ABSOLUTE MONOCYTES (AUTO) 0.5 10^3/uL (0.1-1.4); ABSOLUTE NEUT (AUTO) 3.5 10^3/uL (1.7-8.2); BASOPHILS % (AUTO) 0.5 % (0-2); EOSINOPHILS % (AUTO) 2.1 % (0-6); HEMATOCRIT 31.5 % (36.0-47.0); LYMPHOCYTES % (AUTO) 38.6 % (13-45); MEAN CORPUSCULAR HEMOGLOBIN 31.4 pg (27.0-33.4); MEAN CORPUSCULAR HGB CONC 34.9 g/dL (32.0-36.0); MEAN CORPUSCULAR VOLUME 90 fl (80-97); PLATELET COUNT 244 10^3/uL (150-450); RED CELL DISTRIBUTION WIDTH 13.2 % (11.5-14.0); SEGMENTED NEUTROPHILS % (AUTO) 50.8 % (42-78); TOTAL CELLS COUNTED % (AUTO) 100 %; WHITE BLOOD COUNT 6.8 10^3/uL (4.0-10.5)
[2017-11-18 05:20] LABS: ALANINE AMINOTRANSFERASE 22 U/L (9-52); ALBUMIN 3.2 g/dL (3.5-5.0); ALKALINE PHOSPHATASE 97 U/L (38-126); ANION GAP 9 (5-19); ASPARTATE AMINO TRANSFERASE 29 U/L (14-36); BILIRUBIN,DIRECT 0.3 mg/dL (0.0-0.4); BILIRUBIN,TOTAL 0.6 mg/dL (0.2-1.3); BLOOD UREA NITROGEN 16 mg/dL (7-20); CALCIUM 9.1 mg/dL (8.4-10.2); CARBON DIOXIDE 36 mmol/L (22-30); CHLORIDE 94 mmol/L (98-107); GLUCOSE 96 mg/dL (75-110); SODIUM 138.8 mmol/L (137-145); TOTAL PROTEIN 6.1 g/dL (6.3-8.2)
[2017-11-18] MEDS ORDERED: ENOXAPARIN SODIUM INJ 100 MG/1 ML DISP.SYRIN SUBCUT SCH (06:00)
[2017-11-18] MEDS: KETOROLAC TROMETHAMINE INJ/PF 30 MG/1 ML SDV IV PRN (06:15)
[2017-11-18 06:21] LABS: POTASSIUM 3.5 mmol/L (3.6-5.0)
[2017-11-18] MEDS: RINGERS SOLUTION,LACTATED 1,000 ML IV PRN ×2 (08:54→08:55)
[2017-11-18] MEDS: ENOXAPARIN SODIUM INJ 100 MG/1 ML DISP.SYRIN SUBCUT SCH ×2 (09:50→21:41)
[2017-11-18] MEDS ORDERED: ENOXAPARIN SODIUM INJ 40 MG/0.4 ML DISP.SYRIN SUBCUT SCH (10:00)
--- NOTE | 2017-11-18 11:20 | PDOC PROGRESS REPORT ---
Subjective Progress Note for:: 11/18/17 Subjective:: Patient lying in bed comfortably. She was admitted yesterday for hypokalemia but has been complaining of significant pain in her right knee and has noticed increased swelling and discomfort. She has difficulty with physical therapy and mobilization since the date of surgery. Reason For Visit: HYPOKALEMIA,POSTOPERATIVE PAIN OF RIGHT KNEE,NAUSE Physical Exam Vital Signs: Temp Pulse Resp BP Pulse Ox 98.2 F 62 14 124/69 95 11/18/17 07:17 11/18/17 09:53 11/18/17 09:53 11/18/17 07:17 11/18/17 07:17 Intake & Output 11/17/17 11/18/17 11/19/17 06:59 06:59 06:59 Intake Total 420 1001 Balance 420 1001 Weight 88.3 kg Musculoskeletal exam: PRESENT: other - Right knee: Surgical incision well approximated no erythema or drainage. Patient does have ecchymosis on the posterior aspect of the knee with ecchymosis anteriorly consistent with postoperative hemarthrosis. Mild calf tenderness. Intact plantar flexion/ dorsiflexion. Results Laboratory Results: 11/18/17 03:44 11/18/17 03:44 11/17/17 11/18/17 11/18/17 19:51 03:44 03:44 WBC 6.8 RBC 3.50 L Hgb 11.0 L D Hct 31.5 L MCV 90 MCH 31.4 MCHC 34.9 RDW 13.2 Plt Count 244 Seg Neutrophils % 50.8 Lymphocytes % 38.6 Monocytes % 8.0 Eosinophils % 2.1 Basophils % 0.5 Absolute Neutrophils 3.5 Absolute Lymphocytes 2.6 Absolute Monocytes 0.5 Absolute Eosinophils 0.1 Absolute Basophils 0.0 Sodium 138.8 Potassium 3.5 L D Chloride 94 L Carbon Dioxide 36 H Anion Gap 9 BUN 16 Creatinine 0.82 Est GFR ( Amer) > 60 Est GFR (Non-Af Amer) > 60 Glucose 96 Lactic Acid 1.0 Calcium 9.1 Total Bilirubin 0.6 AST 29 ALT 22 Alkaline Phosphatase 97 Total Protein 6.1 L Albumin 3.2 L 11/18/17 03:44 CK-MB (CK-2) 0.49 Impressions: Chest X-Ray 11/17/17 10:07 IMPRESSION: NO ACUTE RADIOGRAPHIC FINDING IN THE CHEST. Chest/Abdomen CTA 11/17/17 10:42 IMPRESSION: No evidence of pulmonary embolus. Assessment & Plan - Diagnosis (1) Postoperative pain of right knee Is this a current diagnosis for this admission?: Yes Plan: Status post right total knee arthroplasty 11/12/17 Currently no sign or symptoms of infection. Do not feel patient requires IV antibiotics she does have some ecchymosis consistent with hematoma. Given her posterior calf tenderness patient has had a venous ultrasound ordered to evaluate for possible DVT. Chest CT has been negative for pulmonary embolism. Will obtain radiographs of the right knee to ensure no evidence of mechanical malalignment otherwise she should continue to mobilize with physical therapy.
--- NOTE | 2017-11-18 13:36 | RADIOLOGY REPORT (SQ) ---
EXAM DESCRIPTION: KNEE RIGHT 2 VIEWS COMPLETED DATE/TIME: 11/18/2017 12:01 pm REASON FOR STUDY: Knee Pain s/p TKA COMPARISON: 11/12/2017 NUMBER OF VIEWS: Two view(s). TECHNIQUE: Digital radiographic images of the right knee post-procedure. LIMITATIONS: None. FINDINGS: BONES: No worrisome or unexpected findings post-procedure. DEVICE: Total knee arthroplasty SOFT TISSUES: No worrisome findings. Expected postoperative soft tissue changes. IMPRESSION: SATISFACTORY POSTOPERATIVE RIGHT KNEE. TECHNICAL DOCUMENTATION: JOB ID: [id number] [employer]- All Rights Reserved Reading location - IP/workstation name: [email or web address]
[2017-11-18] MEDS ORDERED: TRAMADOL HCL 50 MG TABLET PO PRN (15:31)
[2017-11-18] MEDS: TRAMADOL HCL 50 MG TABLET PO PRN ×2 (15:34→21:42)
--- NOTE | 2017-11-18 15:55 | XCELERA REPORT ---
[address] [place] [facility] [address] Lower Extremity Venous Evaluation Procedure: Color flow and duplex imaging of the veins of the right lower extremity as well as the left Common Femoral vein. Right Sided Venous Evaluation Non vascular mass, 4 x 3 x 1.5 cms. in the Popliteal fossa. Normal vessel filling wall to wall, compression and augmentation as well as Colour flow down to the infrageniculate veins. Left Sided Venous Evaluation The left common femoral vein is fully compressible. Spontaneous and phasic flow is present in the left common femoral vein. Interpretation Summary No duplex evidence of DVT or obstruction in the right lower extremity nor in the left Common Femoral vein. A non vascular mass, likely hematoma noted in Right Popliteal fossa. Name: ROBERT MARTINEZ Age: 57 yrs Gender: Female : 1960 Patient Status: Emergency Patient Location: ER Study Date: 11/17/2017 01:51 PM Reason For Study: rle swelling post-op Ordering Physician: STERLING MONTANEZ Performed By: Jazlyn Moreira : STERLING MONTANEZ > Kris Bolanos
[2017-11-18] MEDS ORDERED: IBUPROFEN 600 MG TABLET PO PRN (18:33)
--- NOTE | 2017-11-18 18:37 | PDOC PROGRESS REPORT ---
Subjective Progress Note for:: 11/18/17 Subjective:: The patient states that she is feeling better. No new complaints. Reason For Visit: HYPOKALEMIA,POSTOPERATIVE PAIN OF RIGHT KNEE,NAUSE Physical Exam Vital Signs: Temp Pulse Resp BP Pulse Ox 98.5 F 72 16 107/57 L 95 11/18/17 15:24 11/18/17 15:24 11/18/17 15:24 11/18/17 15:24 11/18/17 15:24 Intake & Output 11/17/17 11/18/17 11/19/17 06:59 06:59 06:59 Intake Total 420 1001 Balance 420 1001 Weight 88.3 kg General appearance: PRESENT: no acute distress, morbidly obese Respiratory exam: PRESENT: other - No increaed work of breathing. No wheezes, rales, or rhonchi. No tactile fremitus. Cardiovascular exam: PRESENT: RRR, other - No lateral PMI. No thrills.. ABSENT : gallop, rubs, systolic murmur GI/Abdominal exam: PRESENT: soft, other - Bowel sounds are diminished.. ABSENT : guarding, mass, organolmegaly, tenderness Extremities exam: PRESENT: tenderness - Right lower extremity, other - Right lower extremity is bandaged.. ABSENT: clubbing Musculoskeletal exam: PRESENT: normal inspection. ABSENT: deformity, dislocation, tenderness Neurological exam: PRESENT: alert, awake, oriented to person, oriented to place , oriented to time, oriented to situation, CN II-XII grossly intact, motor sensory deficit Psychiatric exam: PRESENT: appropriate affect, normal mood Skin exam: PRESENT: dry, erythema - Right lower extremity., intact, warm Results Laboratory Results: 11/18/17 03:44 11/18/17 03:44 11/17/17 11/18/17 11/18/17 19:51 03:44 03:44 WBC 6.8 RBC 3.50 L Hgb 11.0 L D Hct 31.5 L MCV 90 MCH 31.4 MCHC 34.9 RDW 13.2 Plt Count 244 Seg Neutrophils % 50.8 Lymphocytes % 38.6 Monocytes % 8.0 Eosinophils % 2.1 Basophils % 0.5 Absolute Neutrophils 3.5 Absolute Lymphocytes 2.6 Absolute Monocytes 0.5 Absolute Eosinophils 0.1 Absolute Basophils 0.0 Sodium 138.8 Potassium 3.5 L D Chloride 94 L Carbon Dioxide 36 H Anion Gap 9 BUN 16 Creatinine 0.82 Est GFR ( Amer) > 60 Est GFR (Non-Af Amer) > 60 Glucose 96 Lactic Acid 1.0 Calcium 9.1 Total Bilirubin 0.6 AST 29 ALT 22 Alkaline Phosphatase 97 Total Protein 6.1 L Albumin 3.2 L 11/18/17 03:44 CK-MB (CK-2) 0.49 Impressions: Chest X-Ray 11/17/17 10:07 IMPRESSION: NO ACUTE RADIOGRAPHIC FINDING IN THE CHEST. Chest/Abdomen CTA 11/17/17 10:42 IMPRESSION: No evidence of pulmonary embolus. Knee X-Ray 11/18/17 00:00 IMPRESSION: SATISFACTORY POSTOPERATIVE RIGHT KNEE. Assessment & Plan - Diagnosis (1) Diverticulitis Is this a current diagnosis for this admission?: Yes Plan: IV antibiotics. CT abdomen and pelvis was planned, but the patient has refused to take oral or IV contrast for the study. Blood cultures x 2 pending. (2) Elevated lipase Is this a current diagnosis for this admission?: Yes Plan: Monitor. (3) Hypokalemia Is this a current diagnosis for this admission?: Yes Plan: Supplement and follow. (4) Nausea Is this a current diagnosis for this admission?: Yes Plan: Resolving. The patient has gone down to the cafeteria. She is eating whatever she wants. (5) Postoperative pain of right knee Is this a current diagnosis for this admission?: Yes Plan: Orthopedic surgery consulted. Will check for DVT with doppler. Coverage with [employer] in the mean time. Doppler will be done tomorrow. (6) Arthritis of right knee Is this a current diagnosis for this admission?: Yes Plan: S/P Right TKR on 11/12/2017. - Time Time Spent with patient: 25-34 minutes Medications reviewed and adjusted accordingly: Yes
[2017-11-18] MEDS ORDERED: ASPIRIN 81 MG TABLET, ENT COATED PO ONE (19:00)
[2017-11-19] MEDS ORDERED: ASPIRIN 81 MG TABLET, ENT COATED PO SCH (10:00)
[2017-11-19] MEDS: TRAMADOL HCL 50 MG TABLET PO PRN (10:46)
[2017-11-19] MEDS: ENOXAPARIN SODIUM INJ 100 MG/1 ML DISP.SYRIN SUBCUT SCH (10:47)
[2017-11-19 13:56] VITALS: BP 116/66
--- NOTE | 2017-11-19 23:09 | PDOC DISCHARGE SUMMARY ---
General - Admit/Disc Date/PCP Admission Date/Primary Care Provider: 11/17/17 14:29 Discharge Date: 11/19/17 - Discharge Diagnosis (1) Diverticulitis Is this a current diagnosis for this admission?: Yes (2) Elevated lipase Is this a current diagnosis for this admission?: Yes (3) Hypokalemia Is this a current diagnosis for this admission?: Yes (4) Nausea Is this a current diagnosis for this admission?: Yes (5) Postoperative pain of right knee Is this a current diagnosis for this admission?: Yes (6) Arthritis of right knee Is this a current diagnosis for this admission?: Yes - Additional Information Resuscitation Status: Full Code Discharge Diet: Cardiac Discharge Activity: Activity As Tolerated, No Driving, Walk Frequently Prescriptions: Apixaban [Eliquis 2.5 mg Tablet] 2.5 mg PO BID #24 tablet Home Medications: Cetirizine HCl [Allergy Relief] 10 mg PO DAILY 10/17/17 Hydrochlorothiazide 25 mg PO BID 10/17/17 Naproxen 500 mg PO BID 10/17/17 Pantoprazole Sodium 40 mg PO BID 10/17/17 Simvastatin 40 mg PO DAILY 10/17/17 Tramadol HCl 50 mg PO Q8HP PRN 10/17/17 Cholecalciferol (Vitamin D3) [D3-2000] 4,000 units PO DAILY 11/01/17 Aspirin [Ecotrin 81 mg EC Tablet] 81 mg PO DAILY tabec 11/14/17 Gabapentin [Neurontin 300 mg Capsule] 300 mg PO Q8 11/17/17 Apixaban [Eliquis 2.5 mg Tablet] 2.5 mg PO BID #24 tablet 11/19/17 History of Present Illness History of Present Illness: ROBERT MARTINEZ is a 57 year old female who underwent Rt TKR on 08/12/2017. She states that her right leg is painful and swollen. She states that she is unable to bear weight or walk on it. She states that she tried to contact her orthopedic surgery, but was told that he was not available. The patient states that for the past 2-3 days she has also had nausea, vomiting, diarrhea, and pain in her left lower quadrant. She states that today she has been dizzy and very weak. She has also had fevers. Hospital Course Hospital Course: The patient was admitted to a medical bed. She was kept NPO and was given antiemetics and pain control. A CT of the abdomen was ordered. However when it came time for the study the patient refused it. She also left her room and went down to the cafeteria to eat. Orthopedic surgery was consulted to evalute her right led. I ordered a left lower extremity doppler which was read this mornig and was negative. The patient will be discharged to home today with home health. I have discharged her on Eliquis to complete her postoperative anticoagulation. Physical Exam Vital Signs: Temp Pulse Resp BP Pulse Ox 98.2 F 58 L 18 116/66 94 11/19/17 13:46 11/19/17 13:46 11/19/17 13:46 11/19/17 13:46 11/19/17 13:46 Intake & Output 11/18/17 11/19/17 11/20/17 06:59 06:59 06:59 Intake Total 420 2820 Balance 420 2820 Weight 88.3 kg 89.2 kg General appearance: PRESENT: no acute distress, disheveled, morbidly obese Respiratory exam: PRESENT: other - No increased work of breathing. No wheezes, rales, or rhonchi. No tactile fremitus. Cardiovascular exam: PRESENT: RRR, other - No lateral PMI. No thrills.. ABSENT : gallop, rubs, systolic murmur GI/Abdominal exam: PRESENT: soft. ABSENT: distended, hernia, mass, organolmegaly, tenderness Rectal exam: PRESENT: deferred Extremities exam: PRESENT: tenderness. ABSENT: clubbing, +1 edema Neurological exam: PRESENT: alert, awake, oriented to person, oriented to place , oriented to time, oriented to situation, CN II-XII grossly intact. ABSENT: motor sensory deficit Psychiatric exam: PRESENT: unusual affect Skin exam: PRESENT: dry, intact, warm Results Laboratory Results: 11/18/17 03:44 11/18/17 03:44 11/18/17 03:44 CK-MB (CK-2) 0.49 Impressions: Chest X-Ray 11/17/17 10:07 IMPRESSION: NO ACUTE RADIOGRAPHIC FINDING IN THE CHEST. Chest/Abdomen CTA 11/17/17 10:42 IMPRESSION: No evidence of pulmonary embolus. Knee X-Ray 11/18/17 00:00 IMPRESSION: SATISFACTORY POSTOPERATIVE RIGHT KNEE. Qualifiers - * PATIENT BEING DISCHARGED WITH ANY OF THE FOLLOWING DIAGNOSIS: No
== END 2017-11-19 14:00 | disposition home health service (06) | DRG 641 ==
LOC: ER 09:40 → EH 14:29 → 4S 17:15
PROVIDERS: ADMIT Internal Medicine; ATTEND Internal Medicine
DX: E87.6 Hypokalemia (principal); K57.92 Diverticulitis of intestine, part unspecified, without perforation or abscess without bleeding; G89.18 Other acute postprocedural pain; I10 Essential (primary) hypertension; J44.9 Chronic obstructive pulmonary disease, unspecified; Z96.651 Presence of right artificial knee joint; E78.5 Hyperlipidemia, unspecified; E66.9 Obesity, unspecified; Z79.899 Other long term (current) drug therapy; F17.210 Nicotine dependence, cigarettes, uncomplicated; Z88.0 Allergy status to penicillin; Z88.8 Allergy status to other drugs, medicaments and biological substances; Z79.82 Long term (current) use of aspirin; Z68.33 Body mass index [BMI] 33.0-33.9, adult; Z79.01 Long term (current) use of anticoagulants
CPT/HCPCS: 36415; 71046; 71275; 80053; 81001; 82553; 83605; 83690; 85025; 87040; 87086; 87088; 87186; 93005; 93010; 93971; 96365; 96375; 99285; J1650; J1885; J2405; J3010; J3480; J7120; S0119

== ENCOUNTER → 2018-11-19 | Day surgery (SDC) | payer MEDICAID ==
[~2018-11-19] MED LIST changes: +BUPIVACAINE HCL 0.5 % INJ/PF 30 ML SDV ONE; -BUPIVACAINE INJ/PF LIPOSOME/PF 266 MG/20 ML SDV ONE; -CEFAZOLIN INJ 1 GM VIAL IV PRN; -CLINDAMYCIN 600 MG/D5W RTU 600 MG/50 ML RTUPB IV PRN; -IBUPROFEN 800 MG/NS 250 ML IV PRN; -LACTATED RINGERS 1000 ML IV PRN; -LANSOPRAZOLE 15 MG TAB.RAP.DR PO PRN; -LIDOCAINE 0.5% INJ-PF (5 MG/ML) 50 ML SDV SUBCUT PRN; +LIDOCAINE 1% INJ-PF (10 MG/ML) 30 ML SDV ONE; +LIDOCAINE 2% INJ (20 MG/ML) 20 ML MDV ONE; +METHYLPREDNISOLONE ACETATE INJ 40 MG/1 ML ML ONE; -OXYCODONE HCL SR 10 MG TABLET PO PRN; -VANCOMYCIN HCL 1,000 MG in DEXTROSE 5%-WATER 250 ML IV PRN
--- NOTE | 2018-11-19 18:41 | Operative Report ---
KNEE RADIOFREQUENCY PROCEDURE: 1. Superolateral genicular branch from the vastus lateralis 2. Medial retinacular branch from the vastus intermedius NOTE: block of the Inferomedial genicular branch from the saphenous nerve and the Superomedial genicular branch from the vastus medialis Medial retinacular branch from the vastus intermedius were not performed today as the patient was unable to tolerate the entire procedure and wished to return for procedure with sedation. DATE OF PROCEDURE: November 19, 2018 ANESTHESIA: Local COMPLICATIONS: None PROCEDURE IN DETAIL: Hx/PE/meds/allergies/applicable labs reviewed. No changes and no contraindications were found. Full description of the procedure was provided including benefits as well as possible complications including tra nsient increased pain, stomach irritation, mood alteration, transient weakness or parasthesias as well as more serious nerve injury, bleeding, infection or allergic reaction. Informed consent was obtained and documented. The patient was brought to the procedure room and placed on the exam table in a comfortable supine position. The place for needle placement was obtained by manual palpation with radiographic confirmation. The sterile field was prepared by chloroprep and sterile drapes. Local anesthesia superficial and deep was provided by local infiltration of 1% lidocaine. A 17g 75mm radiofrequency introducer needle with a 4 mm active tip was placed overlying the Right knee joint and using fluoroscopic guidance the needle was advanced to a bony endpoint on the superiolateral portion of the femoral condyle of the Right knee. A second needle placed midline of the femur approximately 2cm superior to the upper border of the patella. Attempted aspiration yielded no blood. Lateral x-ray views showed all the needles at 50% depth of the femur and tibia. Motor stimulation was tested at 2.0 volts with no leg movement. Images were saved in AP and lateral. A mixture consisting of 2% lidocaine was slowly injected. Then a radiofrequency ablation of each of the geniculate nerves were done at 80 degrees Celsius for 2 minutes and 30 seconds each. The needles were withdrawn. At this juncture the patient indicated that she did not want to continue with the procedure due to wishing to have sedation for the remainder of the procedure. At this juncture the procedure was stopped the needles were withdrawn and bandages were applied. Patient will be rescheduled for the remainder of the procedure with sedation services after observation the patient was discharged with instructions and follow up. They were also provided contact information to call regarding any concerning symptoms or questions. IMPRESSION: 1. Successful partial geniculate knee radiofrequency ablation was performed. 3. RTC in 2 week(s).
== END ==
LOC: RAD 08:20
PROVIDERS: ATTEND Pain Medicine Interventional Pain Medicine
DX: M25.561 Pain in right knee (principal)
CPT/HCPCS: 64640 ×2; J3490 ×3; J1030

== ENCOUNTER 2019-01-25 17:45 | Emergency (ER) | payer MEDICAID ==
--- NOTE | 2019-01-25 18:02 | ER Document Report ---
ED Medical Screen (RME) - General Chief Complaint: Black/Tarry Stools Stated Complaint: TARRY STOOLS/VOMITING/STOMACH ACHE Time Seen by Provider: 01/25/19 17:58 Mode of Arrival: Ambulatory Information source: Patient Notes: 58-year-old female presents to ED for complaint of nausea and vomiting since Sunday. She states she has been vomiting coffee-ground looking emesis and having dark stools. She states she has not taken any Kaopectate because she cannot due to stomach problems. She is alert and oriented respirations regular nonlabored at this time. She denies any fevers. Patient states she is on chronic pain management and they changed her pain medicine on the first of the month she started taking the new medicines on the ninth of this month and is messed up her stomach. I have greeted and performed a rapid initial assessment of this patient. A comprehensive ED assessment and evaluation of the patient, analysis of test results and completion of medical decision making process will be conducted by an additional ED providers. TRAVEL OUTSIDE OF THE [place] IN LAST 30 DAYS: No - Related Data Allergies/Adverse Reactions: amoxicillin Allergy (Verified 01/25/19 17:53) celecoxib [From Celebrex] Allergy (Verified 01/25/19 17:53) duloxetine [From Cymbalta] Allergy (Verified 01/25/19 17:53) Penicillins Allergy (Verified 01/25/19 17:53) pregabalin [From Lyrica] Allergy (Verified 01/25/19 17:53) sertaconazole [From Ertaczo] Allergy (Verified 01/25/19 17:53) burtans Allergy (Uncoded 01/25/19 17:53) Home Medications: xtampza er. naproxen. vit d. zyrtec. protonix. neurontin. lasix. atorvastatin. hctz. tramadol. advair. albueterol Past Medical History - Social History Chew tobacco use (# tins/day): No Frequency of alcohol use: None Drug Abuse: None - Past Medical History Cardiac Medical History: Reports: Hx Hypercholesterolemia, Hx Hypertension Denies: Hx Atrial Fibrillation, Hx Congestive Heart Failure, Hx Coronary Artery Disease, Hx Heart Attack, Hx Peripheral Vascular Disease, Hx Pulmonary Embolism, Hx Heart Murmur Pulmonary Medical History: Reports: Hx Asthma, Hx COPD, Hx Sleep Apnea - doesn't use Denies: Hx Bronchitis, Hx Pneumonia, Hx Respiratory Failure, Hx Tuberculosis Endocrine Medical History: Denies: Hx Graves' Disease, Hx Hyperthyroidism, Hx Hypothyroidism Renal/ Medical History: Denies: Hx Kidney Stones, Hx Peritoneal Dialysis Malignancy Medical History: Denies: Hx Lung Cancer GI Medical History: Reports: Hx Gastroesophageal Reflux Disease. Denies: Hx Crohn's Disease, Hx Hiatal Hernia, Hx Irritable Bowel, Hx Liver Failure, Hx Pancreatitis, Hx Ulcer Musculoskeltal Medical History: Reports Hx Arthritis - knees, Denies Hx Fibromyalgia, Denies Hx Muscular Dystrophy, Denies Hx Systemic Lupus Erythematosus Traumatic Medical History: Reports: Hx Fractures - ribs Past Surgical History: Reports: Hx Cardiac Catheterization, Hx Orthopedic Surgery - right knee replacement, Hx Tubal Ligation. Denies: Hx Appendectomy, Hx Bowel Surgery, Hx Section, Hx Cholecystectomy, Hx Colostomy, Hx Coronary Artery Bypass Graft, Hx Gastric Bypass Surgery, Hx Herniorrhaphy, Hx Hysterectomy, Hx Mastectomy, Hx Pacemaker, Hx Tonsillectomy Physical Exam - Vital signs Vitals: Temp Pulse Resp BP Pulse Ox 98.1 F 77 22 H 120/55 L 98 01/25/19 17:52 01/25/19 17:52 01/25/19 17:52 01/25/19 17:52 01/25/19 17:52 Course - Vital Signs Vital signs: Temp Pulse Resp BP Pulse Ox 98.1 F 77 22 H 120/55 L 98 01/25/19 17:52 01/25/19 17:52 01/25/19 17:52 01/25/19 17:52 01/25/19 17:52
[2019-01-25 18:37] LABS: ABSOLUTE BASOPHILS # (AUTO) 0.1 10^3/uL (0.0-0.2); ABSOLUTE EOSINOPHILS # (AUTO) 0.1 10^3/uL (0.0-0.6); ABSOLUTE LYMPHOCYTES (AUTO) 2.2 10^3/uL (0.5-4.7); ABSOLUTE MONOCYTES (AUTO) 0.6 10^3/uL (0.1-1.4); EOSINOPHILS % (AUTO) 0.6 % (0-6); HEMATOCRIT 43.3 % (36.0-47.0); MEAN CORPUSCULAR VOLUME 93 fl (80-97); TOTAL CELLS COUNTED % (AUTO) 100 %
[2019-01-25 18:41] LABS: BASOPHILS % (AUTO) 0.8 % (0-2); HEMOGLOBIN 14.6 g/dL (12.0-15.5); LYMPHOCYTES % (AUTO) 25.1 % (13-45); MEAN CORPUSCULAR HEMOGLOBIN 31.3 pg (27.0-33.4); MEAN CORPUSCULAR HGB CONC 33.7 g/dL (32.0-36.0); MONOCYTES % (AUTO) 6.6 % (3-13); PLATELET COUNT 276 10^3/uL (150-450); RED BLOOD COUNT 4.67 10^6/uL (3.72-5.28); RED CELL DISTRIBUTION WIDTH 14.3 % (11.5-14.0); SEGMENTED NEUTROPHILS % (AUTO) 66.9 % (42-78); WHITE BLOOD COUNT 8.9 10^3/uL (4.0-10.5)
[2019-01-25 18:55] LABS: ALBUMIN 4.4 g/dL (3.5-5.0); ALKALINE PHOSPHATASE 136 U/L (38-126); ANION GAP 7 (5-19); ASPARTATE AMINO TRANSFERASE 29 U/L (14-36); BILIRUBIN,DIRECT 0.1 mg/dL (0.0-0.4); BILIRUBIN,TOTAL 0.5 mg/dL (0.2-1.3); BLOOD UREA NITROGEN 13 mg/dL (7-20); CALCIUM 10.1 mg/dL (8.4-10.2); CARBON DIOXIDE 32 mmol/L (22-30); CHLORIDE 103 mmol/L (98-107); GLUCOSE 107 mg/dL (75-110); POTASSIUM 3.5 mmol/L (3.6-5.0); TOTAL PROTEIN 7.8 g/dL (6.3-8.2)
[2019-01-25 19:08] LABS: APPEARANCE,URINE CLOUDY; BILIRUBIN,URINE NEGATIVE (NEGATIVE); CALCIUM OXALATE CRYSTALS,URINE MODERATE /HPF; COLOR,URINE AMBER; GLUCOSE, URINE NEGATIVE (NEGATIVE); KETONES,URINE TRACE mg/dL (NEGATIVE); PROTEIN,URINE NEGATIVE (NEGATIVE); URINE SPECIFIC GRAVITY 1.024
--- NOTE | 2019-01-25 21:53 | ER Document Report ---
ED GI/ - General Chief Complaint: Black/Tarry Stools Stated Complaint: TARRY STOOLS/VOMITING/STOMACH ACHE Time Seen by Provider: 01/25/19 17:58 Primary Care Provider: JENNIE MARIN MD [Primary Care Provider] - Follow up as needed Mode of Arrival: Ambulatory TRAVEL OUTSIDE OF THE [place] IN LAST 30 DAYS: No - HPI Patient complains to provider of: Abdominal pain, Vomiting. No: Diarrhea, Dysuria, Feeding tube problem, Flank pain, Lambert catheter problem, Hematuria, Missed/Late menses, Pelvic pain, , Urinary retention, Vaginal bleeding, Vaginal discharge, Vaginal pain, Other Onset: This morning Timing/Duration: Gradual. denies: Sudden, Constant, Intermittent, Persistent, Waxing and waning, Better, Worse, Gone Quality of pain: Achy, Cramping. denies: No pain, Burning, Dull, Fullness, Pressure, Sharp, Stabbing, Throbbing, Other Severity at maximum: Moderate Severity in ED: Mild Pain Level: 1 Context: denies: Bad food, Lifting, Out of the country travel, , Recent trauma, Other Location: Epigastric. No: Chest pain, LUQ, LLQ, RUQ, RLQ, Left flank, Right flank, Low back, Suprapubic, Pelvis, Vaginal, Vulvar, Rectal, Other Associated symptoms: denies: None, Blood in emesis, Blood in stool, Chest pain, Chills, Coffee ground emesis, Constipation, Diarrhea, Dizzy, Dysuria, Fever, Hard stool, Hematuria, Hurts to breath, Inguinal mass, Lightheaded, Loss of appetite, Nausea, Odor, Painful intercourse, Radiates to back, Radiates to chest, Radiates to vagina, Radiates to shoulder, Shortness of breath, Sweaty, Syncope, Urinary hesitancy, Urinary frequency, Urinary retention, Urinary urgency, Vaginal discharge, Vomiting, Other Exacerbated by: Food Relieved by: Denies Notes: 01/25/19 21:48 She claims that she has had some dark black stools without blood feels it may be something she ate - Related Data Allergies/Adverse Reactions: amoxicillin Allergy (Verified 01/25/19 17:53) celecoxib [From Celebrex] Allergy (Verified 01/25/19 17:53) duloxetine [From Cymbalta] Allergy (Verified 01/25/19 17:53) Penicillins Allergy (Verified 01/25/19 17:53) pregabalin [From Lyrica] Allergy (Verified 01/25/19 17:53) sertaconazole [From Ertaczo] Allergy (Verified 01/25/19 17:53) burtans Allergy (Uncoded 01/25/19 17:53) Home Medications: xtampza er. naproxen. vit d. zyrtec. protonix. neurontin. lasix. atorvastatin. hctz. tramadol. advair. albueterol Past Medical History - General Information source: Patient - Social History Smoking Status: Current Every Day Smoker Chew tobacco use (# tins/day): No Frequency of alcohol use: None Drug Abuse: None Family History: Reviewed & Not Pertinent Patient has suicidal ideation: No Patient has homicidal ideation: No - Past Medical History Cardiac Medical History: Reports: Hx Hypercholesterolemia, Hx Hypertension Denies: Hx Atrial Fibrillation, Hx Congestive Heart Failure, Hx Coronary Artery Disease, Hx Heart Attack, Hx Peripheral Vascular Disease, Hx Pulmonary Embolism, Hx Heart Murmur Pulmonary Medical History: Reports: Hx Asthma, Hx COPD, Hx Sleep Apnea - doesn't use Denies: Hx Bronchitis, Hx Pneumonia, Hx Respiratory Failure, Hx Tuberculosis Endocrine Medical History: Denies: Hx Graves' Disease, Hx Hyperthyroidism, Hx Hypothyroidism Renal/ Medical History: Denies: Hx Kidney Stones, Hx Peritoneal Dialysis Malignancy Medical History: Denies: Hx Lung Cancer GI Medical History: Reports: Hx Gastroesophageal Reflux Disease. Denies: Hx Crohn's Disease, Hx Hiatal Hernia, Hx Irritable Bowel, Hx Liver Failure, Hx Pancreatitis, Hx Ulcer Musculoskeletal Medical History: Reports Hx Arthritis - knees, Denies Hx Fibromyalgia, Denies Hx Muscular Dystrophy, Denies Hx Systemic Lupus Erythematosus Traumatic Medical History: Reports: Hx Fractures - ribs Past Surgical History: Reports: Hx Cardiac Catheterization, Hx Orthopedic Surgery - right knee replacement, Hx Tubal Ligation. Denies: Hx Appendectomy, Hx Bowel Surgery, Hx Section, Hx Cholecystectomy, Hx Colostomy, Hx Coronary Artery Bypass Graft, Hx Gastric Bypass Surgery, Hx Herniorrhaphy, Hx Hysterectomy, Hx Mastectomy, Hx Pacemaker, Hx Tonsillectomy Review of Systems - Review of Systems Constitutional: denies: No symptoms reported, See HPI, Chills, Diaphoresis, Fever, Malaise, Weakness, Other, Weight gain, Weight loss, Recent illness EENT: denies: No symptoms reported, See HPI, Eye pain, Eye discharge, Blurred vision, Tearing, Double vision, Ear pain, Ear discharge, Nose pain, Nose congestion, Nose discharge, Sinus pressure, Sinus discharge, Throat pain, Difficulty swallowing, Throat swelling, Mouth pain, Mouth swelling, Dental problem, Vertigo, Other Cardiovascular: denies: No symptoms reported, See HPI, Chest pain, Palpitations, Heart racing, Orthopnea, Dyspnea, Syncope, Dizziness, Lightheaded, Edema, Other, Paroxysmal Nocturnal Dysp Respiratory: denies: No symptoms reported, See HPI, Cough, Hurts to breathe, Hemoptysis, Short of breath, Sputum, Stridor, Wheezing, Other Gastrointestinal: Abdominal pain, Diarrhea, Nausea, Vomiting, Black stools. denies: No symptoms reported, See HPI, Abdomen distended, Constipation, Blood streaked bowels, Poor appetite, Poor fluid intake, Blood in vomit, Rectal bleeding, Last bowel movement, Fecal incontinence, Other Genitourinary: denies: No symptoms reported, See HPI, Burning, Dysuria, Discharge, Frequency, Flank pain, Hematuria, Incontinence, Pain, Urgency, Retention, Other Neurological/Psychological: denies: No symptoms reported, See HPI, Confusion, Dementia, Depression, Hallucinations, Anxiety, Homicidal ideation, Sensory change, Weakness, Gait changes, Loss of power, Paralysis, Seizure, Lost consciousness, Headaches, Speech impairment, Numbness, Suicidal ideation, Tingling, Tremor, Other -: Yes All other systems reviewed and negative Physical Exam - Vital signs Vitals: Temp Pulse Resp BP Pulse Ox 98.1 F 77 22 H 120/55 L 98 01/25/19 17:52 01/25/19 17:52 01/25/19 17:52 01/25/19 17:52 01/25/19 17:52 Notes: PHYSICAL EXAMINATION: GENERAL: Well-appearing, well-nourished and in no acute distress. HEAD: Atraumatic, normocephalic. EYES: Pupils equal round and reactive to light, extraocular movements intact, sclera anicteric, conjunctiva are normal. ENT: nares patent, oropharynx clear without exudates. Moist mucous membranes. NECK: Normal range of motion, supple without lymphadenopathy LUNGS: Breath sounds clear to auscultation bilaterally and equal. No wheezes rales or rhonchi. HEART: Regular rate and rhythm without murmurs ABDOMEN: Soft, mild tenderness to the midepigastric area only hyperactive bowel sounds. No guarding, no rebound. No masses appreciated. EXTREMITIES: Normal range of motion, no pitting or edema. No cyanosis. NEUROLOGICAL: No focal neurological deficits. Moves all extremities spontaneously and on command. PSYCH: Normal mood, normal affect. SKIN: Warm, Dry, normal turgor, no rashes or lesions noted. Course - Vital Signs Vital signs: Temp Pulse Resp BP Pulse Ox 98.1 F 77 22 H 120/55 L 98 01/25/19 17:52 01/25/19 17:52 01/25/19 17:52 01/25/19 17:52 01/25/19 17:52 - Laboratory Result Diagrams: 01/25/19 18:15 01/25/19 18:15 Laboratory results interpreted by me: 01/25/19 01/25/19 01/25/19 18:15 18:15 18:15 RDW 14.3 H Potassium 3.5 L Carbon Dioxide 32 H Alkaline Phosphatase 136 H Urine Ketones TRACE H Urine Blood SMALL H Urine Urobilinogen 4.0 H Leukocyte Esterase Rfl MODERATE H - Transfer of Care Notes: 01/25/19 21:50 Based on the labs which are near normal in the presentation this could be just viral however with the black looking stools no blood I will cover her with some ciprofloxacin give her some Zofran and Bentyl to go home with associated use of brats diet drink Gatorade mixed with water return if worse Discharge - Discharge Clinical Impression: Bacterial gastroenteritis Condition: Good Disposition: HOME, SELF-CARE Instructions: Gastroenteritis (adult) ([facility]) Additional Instructions: Drink Gatorade mixed with water advance to a diet of bananas rice applesauce toast return if worse Prescriptions: Dicyclomine HCl [Bentyl 20 mg Tablet] 20 mg PO QID #40 tablet Ciprofloxacin HCl [Cipro 500 mg Tablet] 500 mg PO BID #10 tablet Ondansetron [Zofran Odt 4 mg Tablet] 1 - 2 tab PO Q4H PRN #15 tab.rapdis PRN Reason: For Nausea/Vomiting Referrals: JENNIE MARIN MD [Primary Care Provider] - Follow up as needed
[2019-01-25 22:23] VITALS: BP 114/70
== END 2019-01-25 22:22 | disposition home or self-care (01) ==
LOC: ER 17:45
DX: K52.89 Other specified noninfective gastroenteritis and colitis (principal); B96.89 Other specified bacterial agents as the cause of diseases classified elsewhere; R10.9 Unspecified abdominal pain; R11.10 Vomiting, unspecified; F17.200 Nicotine dependence, unspecified, uncomplicated; I10 Essential (primary) hypertension; J44.9 Chronic obstructive pulmonary disease, unspecified
CPT/HCPCS: 36415; 80053; 81001; 83690; 85025; 86850; 86900; 86901; 87086; 87088; 99284

== ENCOUNTER 2019-04-22 08:38 | Day surgery (SDC) | payer MEDICAID ==
[2019-04-22] MEDS ORDERED: FENTANYL CITRATE INJ/PF 100 MCG/2 ML AMPUL INJ PRN (09:41)
[2019-04-22] MEDS ORDERED: MIDAZOLAM 2 MG/2 ML INJ IV PRN (09:42)
[2019-04-22] MEDS ORDERED: LIDOCAINE 2% INJ (20 MG/ML) 20 ML MDV ONE (09:48)
[2019-04-22] MEDS ORDERED: METHYLPREDNISOLONE ACETATE INJ 40 MG/1 ML ML ONE (09:48)
[2019-04-22] MEDS ORDERED: BUPIVACAINE HCL 0.5 % INJ/PF 30 ML SDV ONE (09:48)
[2019-04-22] MEDS ORDERED: MIDAZOLAM 2 MG/2 ML INJ ONE (09:51)
[2019-04-22] MEDS ORDERED: FENTANYL CITRATE INJ/PF 100 MCG/2 ML AMPUL ONE (09:51)
--- NOTE | 2019-04-22 11:11 | Operative Report ---
KNEE RADIOFREQUENCY - RIGHT PROCEDURE: 1. Superolateral genicular branch from the vastus lateralis 2. Superomedial genicular branch from the vastus medialis 3. Inferomedial genicular branch from the saphenous nerve 4. Medial retinacular branch from the vastus intermedius DATE OF PROCEDURE: April 22, 2019 ANESTHESIA: Local with sedation using midazolam and fentanyl COMPLICATIONS: None PROCEDURE IN DETAIL: Hx/PE/meds/allergies/applicable labs reviewed. No changes and no contraindications were found. Full description of the procedure was provided including benefits as well as possible complications including transient increased pain, stomach irritation, mood alteration, transient weakness or parasthesias as well as more serious nerve injury, bleeding, infection or allergic reaction. Informed consent was obtained and documented. The patient was brought to the procedure room and placed on the exam table in a comfortable supine position. The place for needle placement was obtained by manual palpation with radiographic confirmation. The sterile field was prepared by chloroprep and sterile drapes. Local anesthesia superficial and deep was provided by local infiltration of 1% lidocaine. A 17g 75 mm radiofrequency introducer needle with a 4 mm active tip was placed overlying the Right knee joint and using fluoroscopic guidance the needle was advanced to a bony endpoint on the superiolateral portion of the femoral condyle of the Right/left knee. A second needle was advanced to a bony endpoint on the superiomedial portion of the femoral condyle. A third needle was then placed over the inferiomedial portion of the tibial condyle until a bony endpoint was met. A fourth needle was placed midline of the femur approximately 2cm superior to the upper border of the patella. Attempted aspiration yielded no blood. Lateral x-ray views showed all the needles at 50% depth of the femur and tibia. Motor stimulation was tested at 2.0 volts with no leg movement. Images were saved in AP and lateral. A mixture consisting of 2% lidocaine was slowly injected. Then a radiofrequency ablation of each of the geniculate nerves were done at 80 degrees Celsius for 2 minutes and 30 seconds each. The needles were withdrawn. The patient tolerated the procedure well. After observation the patient was discharged with instructions and follow up. They were also provided contact information to call regarding any concerning symptoms or questions. IMPRESSION: 1. Successful geniculate knee radiofrequency ablation was performed. 2. The patient was given prescription of oxycodone for postprocedural pain. 3. RTC in 2 week(s).
[2019-04-22 12:26] VITALS: BP 106/66
== END 2019-04-22 12:18 | disposition home or self-care (01) ==
LOC: RAD 08:38
PROVIDERS: ATTEND Pain Medicine Interventional Pain Medicine
DX: M17.11 Unilateral primary osteoarthritis, right knee (principal); M25.561 Pain in right knee; Z88.0 Allergy status to penicillin; Z88.2 Allergy status to sulfonamides
CPT/HCPCS: 64640 ×3; 99152; 99153; J2250; J3490 ×2; J3010; J1030; 64624